=== PATIENT | male | born 1950 | race Caucasian/White ===

== ENCOUNTER 2019-10-06 05:34 | Outpatient (RCR) | payer MEDICARE, SELFPAY | END 2019-10-14 00:01 | LOC: ONCRAD 05:34 | PROVIDERS: Family Provider Internal Medicine; Visit Provider Internal Medicine Medical Oncology | DX: Z51.0 Encounter for antineoplastic radiation therapy (principal); C61 Malignant neoplasm of prostate; C79.51 Secondary malignant neoplasm of bone; K62.7 Radiation proctitis; Y84.2 Radiological procedure and radiotherapy as the cause of abnormal reaction of the patient, or of later complication, without mention of misadventure at the time of the procedure; Y82.8 Other medical devices associated with adverse incidents; N34.2 Other urethritis; K59.00 Constipation, unspecified; Z90.79 Acquired absence of other genital organ(s); M19.90 Unspecified osteoarthritis, unspecified site; Z79.818 Long term (current) use of other agents affecting estrogen receptors and estrogen levels; Z79.899 Other long term (current) drug therapy; Z87.891 Personal history of nicotine dependence | CPT/HCPCS: 36415; 77280; 77300; 77336; 77338; 77385 ×6; 80053; 84153; 85025; 99214 ==

== ENCOUNTER 2019-11-01 05:45 | Outpatient (RCR) | payer MEDICARE, SELFPAY | END 2019-11-14 00:01 | LOC: ONCRAD 05:45 | PROVIDERS: Family Provider Internal Medicine; Visit Provider Internal Medicine Medical Oncology | DX: C61 Malignant neoplasm of prostate (principal); Z79.818 Long term (current) use of other agents affecting estrogen receptors and estrogen levels | CPT/HCPCS: 96402; J9217 ==

== ENCOUNTER 2020-01-29 11:57 | Outpatient (CLI) | payer MEDICARE, SELFPAY ==
[2020-01-29 12:42] LABS: Basophils % 0.4 %; Eosinophils # 0.2 10^3/uL (0.0-0.8); Eosinophils % 3.7 %; Hematocrit 39.9 % (42.0-52.0); Hemoglobin 12.4 g/dL (11.7-16.6); Lymphocytes # 1.8 10^3/uL (0.8-4.8); Lymphocytes % 37.8 %; Mean Corpuscular HGB Conc 31.1 g/dL (30.0-36.0); Mean Corpuscular Hemoglobin 30.1 pg (28.0-34.0); Mean Corpuscular Volume 96.8 fL (80-94); Mean Platelet Volume 10.5 fL (7.4-10.4); Monocytes # 0.5 10^3/uL (0.2-0.9); Monocytes % 9.9 %; Neutrophils # 2.2 10^3/uL (1.8-7.7); Neutrophils % 47.8 %; Nucleated Red Blood Cells % 0 %; Platelet Count 246 10^3/cmm (130-400); Red Blood Count 4.12 10^6/uL (4.1-5.3); Red Cell Distribution Width 13.2 % (12.1-15.1); White Blood Count 4.6 10^3/uL (4.0-10.0)
[2020-01-29 13:14] LABS: Prostate Specific Antigen < 0.02 ng/mL (0-4)
[2020-01-29 13:25] LABS: Alanine Aminotransferase 16 U/L (0-41); Albumin Level 4.5 g/dL (3.5-5.2); Alkaline Phosphatase 64 IU/L (40-130); Aspartate Amino Transferase 18 U/L (0-40); Blood Urea Nitrogen 17 mg/dL (8-23); Calcium 10.4 mg/dL (8.5-10.5); Carbon Dioxide 25 mmol/L (22-29); Chloride 103 mmol/L (98-107); Globulin 2.7 g/dL (1.3-4.6); Glomerular Filtration Rate 74.1 mL/min (90-130); Glucose 94 mg/dL (65-115); Osmolality Calculated 286 mOsm/kg (285-295); Sodium 140 mmol/L (136-145); Total Bilirubin 0.3 mg/dL (0.15-1.2); Total Protein 7.2 g/dL (6.6-8.7)
== END 2020-01-29 11:58 | disposition home or self-care (01) ==
LOC: ONCMED 11:57
PROVIDERS: Family Provider Internal Medicine; PCP Internal Medicine; Visit Provider Internal Medicine Medical Oncology
DX: C61 Malignant neoplasm of prostate (principal)
CPT/HCPCS: 80053; 84153; 85025

== ENCOUNTER 2020-01-31 14:36 | Outpatient (CLI) | payer MEDICARE, SELFPAY ==
[2020-01-31] MEDS: leuprolide 22.5 mg Kit IM (15:00)
--- NOTE | 2020-02-03 10:46 | ONC FU_ITS ---
Dr. Harding Patient Follow-Up Note Patient: Parmjit Martínez Unit #: [id number]: [id number] Dicatated By: Dre Harding M.D.Date of Visit:Jan 31, 2020 Onc Med Follow-up/Prog Note Chief Complaint: Prostate cancer. History of Present Illness: This is a 69 year-old man with [place] score 7 adenocarcinoma of the prostate, stage III (pT3a, pN0, M0) at initial diagnosis in June 2018. He has had evidence of biochemical recurrence following radical prostatectomy in June 2018. In April 2018 he had undergone a medical evaluation at the [facility] in the [facility]. He had a normal PSA level at 2.10 ng/mL. Ultrasound of the prostate, though, showed a hypoechoic solid nodules in the peripheral zone of the right prostatic lobe measuring 1.99 x 1.84 x 1.69 cm. MRI of the prostate on 05/17/2018 showed a 2.8 x 1.8 x 2.4 cm nodule involving the right peripheral zone, highly suspicious. Needle biopsy of the prostate on 05/19/2019 showed Phoenix score 8 (4 + 4). Staging bone scan on 06/07/2018 showed osteoblastic lesions in the anterior ninth right rib and in the L4 vertebral body, suspicious for osseous metastases. A subsequent bone scan with SPECT/CT on 06/09/2018 showed a focus of moderately increased activity in the anterior end of the ninth right rib which was felt to be consistent with an old healed fracture. Areas of increased uptake in the L3 and L4 vertebral bodies corresponding to CT findings of hyperdensities in the left side of the inferior and superior cortical endplates, felt to be consistent with osseous metastases. A staging whole-body Gallium-68 PSMA PET/CT on 06/16/2018 showed intense PSMA expression with SUV 12.2 involving the right peripheral zone corresponding to the MRI lesion, consistent with the known malignancy. There was no evidence for PSMA-overexpressing [place] or skeletal metastases. Sclerotic endplate changes at L3 and L4 were felt to be most likely degenerative. On 06/30/2018 she underwent robotic-assisted radical prostatectomy. Pathology showed prostatic adenocarcinoma with ductal features, Anca score 4+3 = 7. There was involvement in both prostatic lobes and there was focal extraprostatic extension at the right anterior apex. Positive surgical margins were identified at the right anterior mid gland, right anterior apex, and left anterior apex. The positive margin had an overall Phoenix score of 4+3 equal 7 and it involved a cumulative length of more than 3 mm. There was no involvement in the right and left seminal vesicles and right and left vase deferens. There was no involvement in 13 pelvic lymph nodes. He then had urology followup with Dr. Jacobo Hardy in August 2018. His PSA at that time was < 0.01 ng/mL. As of his followup in February 2019 the PSA had increased slightly, to 0.02 ng/mL, and a repeat level on 06/22/2019 was up to 0.06 ng/mL. He then began androgen deprivation with Depo-Lupron in combination with short-term bicalutamide, with the Depo-Lupron recommended to be continued for one year of treatment. He was then seen by Dr. Chahal for radiation to the prostate bed. He completed treatment on 09/22/2019 to a total dose of 7300 cGy. His medical illnesses have otherwise been limited to degenerative arthritis and degenerative disease of the spine. His other surgeries have included a ventral hernia repair in 2017 and repair of recurrent incisional hernia with Ventrio mesh in 2019. He has also had bilateral cataract excisions. He has a history of smoking 2 packs of cigarettes daily for 15 years. He quit smoking in 2016. INTERIM HISTORY: I had seen him for a follow-up visit on 10/06/2019. At that point he was having significant side effects with the androgen deprivation therapy, including hot flashes/sweating and fatigue. His PSA level was < 0.02 ng/mL. He was willing to continue treatment with Depo-Lupron. He is seen for a follow-up visit. He continues to have side effects with the androgen deprivation including hot flashes/sweating, fatigue, and mood changes. He complains that he cannot sleep. He is trying to stay active. His ECOG score is 1. His appetite has been good. He is watching his diet, and his weight is down a couple of pounds. He has not had fever. He has no shortness of breath, cough, or chest pain. He has no GI complaints other than some diarrhea off and on. He continues to have urinary frequency and urgency, and he has nocturia 3-4 times. He has some arthritis pain, which is about the same. He has no focal neurologic symptoms. Medications: CeleBREX 1 Tablet (of 200 mg) Capsule Oral daily, Flomax 1 Capsule (of 0.4 mg) Oral daily Allergies: No Known Allergies. Review of Systems: Constitutional - His energy is down somewhat, but he is doing some light work at home. His appetite is good. He is watching his diet, and his weight is down a couple of pounds. He has hot flashes sweating at night. No fever. ECOG score is 1, ENMT - No sinus congestion/drainage. No mouth sores. No sore throat or difficulty swallowing, Hematologic/Lymphatic - No abnormal bruising or bleeding, Respiratory - No shortness of breath. No cough. No pleuritic pain or hemoptysis, Cardiovascular - No angina pain. No palpitations, Gastrointestinal - No nausea or vomiting. No heartburn or acid reflux. He has diarrhea off and on. No blood in the stool or black stools, Genitourinary (M) - No dysuria or hematuria. He has nocturia 3 to 4 times. He has frequency and urgency during the daytime. No incontinence, Musculoskeletal - He has some arthritis pain, which is unchanged, Integumentary - No skin complications, Neurologic - No headache or dizziness. No numbness/paresthesias or other focal neurologic symptoms, Psychiatric - No anxiety or depression. He does not sleep well at night. Vital Signs: Performed on Jan 31, 2020 13:53 Height - 70.00 in Weight - 208.0 lbs (LOW) BSA - 2.12 sq.m BMI - 29.85 Temperature - 97.1 F (LOW) Pulse - 68 /min Respiration - 18 /min BP - 129/68 mm(hg) O2 Sat - 100 % Pain - 0 Physical Examination: Constitutional - He looks pretty good generally, Eyes - Sclerae nonicteric. Conjunctivae clear, ENMT - No lesions noted in the oral cavity, Hematologic/Lymphatic - No cervical, clavicular, or axillary adenopathy, Respiratory - Lungs are clear with good air movement bilaterally, Cardiovascular - Heart rhythm is regular. There is no murmur, gallop, or rub noted, Abdomen - Soft. Liver and spleen are not enlarged. There is no abdominal mass or ascites noted and there is no inguinal adenopathy, Extremities - No edema, Neurologic - No focal neurologic deficits noted. Lab/Imaging: Test performed on Jan 29, 2020 12:05 Sodium 140 mmol/L Potassium 4.0 mmol/L Chloride 103 mmol/L CO2 25 mmol/L Anion Gap 16.0 BUN 17 mg/dL Creatinine 1.0 mg/dL Cr Clearance (Est) 94.2000 mL/min eGFR 74.1 mL/min Glucose 94 mg/dL Calcium 10.4 mg/dL Protein, Total 7.2 g/dL Albumin 4.5 g/dL Globulin 2.7 g/dL Bilirubin, Total 0.3 mg/dL ALT (SGPT) 16 U/L AST (SGOT) 18 U/L Alkaline Phosphatase 64 IU/L WBC 4.6 10 3/uL RBC 4.12 10 6/uL HGB 12.4 g/dL HCT 39.9 % MCV 96.8 fL MCH 30.1 pg MCHC 31.1 g/dL RDW 13.2 % Platelet Count 246 10 3/cmm MPV 10.5 fL Neutrophils 2.2 10 3/uL Lymphocytes 1.8 10 3/uL Monocytes 0.5 10 3/uL Eosinophils 0.2 10 3/uL Basophils 0.0 10 3/uL Neutrophil % 47.8 % Lymphocyte % 37.8 % Monocyte % 9.9 % Eosinophil % 3.7 % Basophils % 0.4 % PSA < 0.02 ng/mL Impression: 1. Patient with Phoenix score 7 adenocarcinoma of the prostate, stage III (pT3a, pN0, M0) at initial diagnosis in June 2018. 2. He underwent robotic-assisted laparoscopic radical prostatectomy on 06/30/2018 with extraprostatic extension and with positive surgical margin. 3. He had evidence of biochemical recurrence with PSA rising to 0.06 ng/mL as of June 2019. 4. He has pre-existing degenerative arthritis/degenerative disease of the spine. On 06/22/2019 he started androgen deprivation therapy with Depo-Lupron in combination with short-term bicalutamide. He then underwent radiation to the prostate bed. He completed treatment on 09/22/2019 to a total dose of 7300 cGy. As of his followup visit in September 2019 he was still having significant rectal pain as well as some pain with urination, which I assumed to be due to radiation proctitis and urethritis. His PSA level was adequately suppressed at < 0.02 ng/mL. He was having some symptoms associated with the androgen deprivation, but he was willing to continue treatment with Depo-Lupron. Since then he has had some improvement in the rectal pain and the voiding symptoms. He continues, though, to have significant side effects with the androgen deprivation, including hot flashes, fatigue, and mood swings. His PSA level remains adequately suppressed at < 0.02 ng/mL, Plan: He will continue androgen deprivation with Depo-Lupron 22.5 mg by intramuscular injection. He returns in 3 months. Signed By: Dre Harding M.D. <<Signature on File>>
== END 2020-01-31 14:37 | disposition home or self-care (01) ==
LOC: ONCMED 14:36
PROVIDERS: Family Provider Internal Medicine; PCP Internal Medicine; Visit Provider Internal Medicine Medical Oncology
DX: C61 Malignant neoplasm of prostate (principal); C79.51 Secondary malignant neoplasm of bone; M19.90 Unspecified osteoarthritis, unspecified site; Z79.818 Long term (current) use of other agents affecting estrogen receptors and estrogen levels; Z90.79 Acquired absence of other genital organ(s); Z92.3 Personal history of irradiation; Z87.891 Personal history of nicotine dependence
CPT/HCPCS: 96372; 96402; 99214; J9217

== ENCOUNTER 2020-04-30 10:49 | Outpatient (CLI) | payer MEDICARE, SELFPAY ==
[2020-04-30 12:18] LABS: Basophils % 0.2 %; Eosinophils # 0.1 10^3/uL (0.0-0.8); Eosinophils % 2.9 %; Hematocrit 40.1 % (42.0-52.0); Hemoglobin 12.6 g/dL (11.7-16.6); Lymphocytes # 1.7 10^3/uL (0.8-4.8); Mean Corpuscular HGB Conc 31.4 g/dL (30.0-36.0); Mean Corpuscular Hemoglobin 29.5 pg (28.0-34.0); Mean Corpuscular Volume 93.9 fL (80-94); Mean Platelet Volume 10.5 fL (7.4-10.4); Monocytes # 0.4 10^3/uL (0.2-0.9); Monocytes % 8.4 %; Neutrophils # 2.3 10^3/uL (1.8-7.7); Neutrophils % 50.8 %; Nucleated Red Blood Cells % 0 %; Platelet Count 270 10^3/cmm (130-400); Red Blood Count 4.27 10^6/uL (4.1-5.3); Red Cell Distribution Width 13.5 % (12.1-15.1); White Blood Count 4.5 10^3/uL (4.0-10.0)
[2020-04-30 13:06] LABS: Alanine Aminotransferase 12 U/L (0-41); Albumin Level 4.5 g/dL (3.5-5.2); Alkaline Phosphatase 89 IU/L (40-130); Anion Gap 15.3 (5-19); Aspartate Amino Transferase 16 U/L (0-40); Blood Urea Nitrogen 15 mg/dL (8-23); Calcium 10.1 mg/dL (8.5-10.5); Carbon Dioxide 26 mmol/L (22-29); Chloride 105 mmol/L (98-107); Glomerular Filtration Rate 83.7 mL/min (90-130); Glucose 96 mg/dL (65-115); Osmolality Calculated 290 mOsm/kg (285-295); Potassium 4.3 mmol/L (3.5-5.1); Sodium 142 mmol/L (136-145); Total Bilirubin 0.3 mg/dL (0.15-1.2); Total Protein 6.5 g/dL (6.6-8.7)
[2020-04-30 13:18] LABS: Prostate Specific Antigen 0.006 ng/mL (0-4)
== END 2020-04-30 10:50 | disposition home or self-care (01) ==
LOC: ONCMED 10:53
PROVIDERS: PCP Internal Medicine; Visit Provider Internal Medicine Medical Oncology
DX: C61 Malignant neoplasm of prostate (principal)
CPT/HCPCS: 80053; 84153; 85025

== ENCOUNTER 2020-05-01 15:14 | Outpatient (CLI) | payer MEDICARE, SELFPAY ==
[2020-05-01] MEDS: leuprolide 22.5 mg Kit IM (15:55)
--- NOTE | 2020-05-05 14:33 | ONC FU_ITS ---
Dr. Harding Patient Follow-Up Note Patient: Parmjit Martínez Unit #: [id number]: 1950 Dicatated By: Dre Harding M.D.Date of Visit:May 01, 2020 Onc Med Follow-up/Prog Note Chief Complaint: Prostate cancer. History of Present Illness: This is a 69 year-old man with [place] score 7 adenocarcinoma of the prostate, stage III (pT3a, pN0, M0) at initial diagnosis in June 2018. He has had evidence of biochemical recurrence following radical prostatectomy in June 2018. In April 2018 he had undergone a medical evaluation at the [facility] in the [facility]. He had a normal PSA level at 2.10 ng/mL. Ultrasound of the prostate, though, showed a hypoechoic solid nodules in the peripheral zone of the right prostatic lobe measuring 1.99 x 1.84 x 1.69 cm. MRI of the prostate on 05/17/2018 showed a 2.8 x 1.8 x 2.4 cm nodule involving the right peripheral zone, highly suspicious. Needle biopsy of the prostate on 05/19/2019 showed [place] score 8 (4 + 4). Staging bone scan on 06/07/2018 showed osteoblastic lesions in the anterior ninth right rib and in the L4 vertebral body, suspicious for osseous metastases. A subsequent bone scan with SPECT/CT on 06/09/2018 showed a focus of moderately increased activity in the anterior end of the ninth right rib which was felt to be consistent with an old healed fracture. Areas of increased uptake in the L3 and L4 vertebral bodies corresponding to CT findings of hyperdensities in the left side of the inferior and superior cortical endplates, felt to be consistent with osseous metastases. A staging whole-body Gallium-68 PSMA PET/CT on 06/16/2018 showed intense PSMA expression with SUV 12.2 involving the right peripheral zone corresponding to the MRI lesion, consistent with the known malignancy. There was no evidence for PSMA-overexpressing [place] or skeletal metastases. Sclerotic endplate changes at L3 and L4 were felt to be most likely degenerative. On 06/30/2018 she underwent robotic-assisted radical prostatectomy. Pathology showed prostatic adenocarcinoma with ductal features, Anca score 4+3 = 7. There was involvement in both prostatic lobes and there was focal extraprostatic extension at the right anterior apex. Positive surgical margins were identified at the right anterior mid gland, right anterior apex, and left anterior apex. The positive margin had an overall [place] score of 4+3 equal 7 and it involved a cumulative length of more than 3 mm. There was no involvement in the right and left seminal vesicles and right and left vase deferens. There was no involvement in 13 pelvic lymph nodes. He then had urology followup with Dr. Jacobo Hardy in August 2018. His PSA at that time was < 0.01 ng/mL. As of his followup in February 2019 the PSA had increased slightly, to 0.02 ng/mL, and a repeat level on 06/22/2019 was up to 0.06 ng/mL. He then began androgen deprivation with Depo-Lupron in combination with short-term bicalutamide, with the Depo-Lupron recommended to be continued for one year of treatment. He was then seen by Dr. Chahal for radiation to the prostate bed. He completed treatment on 09/22/2019 to a total dose of 7300 cGy. His medical illnesses have otherwise been limited to degenerative arthritis and degenerative disease of the spine. His other surgeries have included a ventral hernia repair in 2017 and repair of recurrent incisional hernia with Ventrio mesh in 2019. He has also had bilateral cataract excisions. He has a history of smoking 2 packs of cigarettes daily for 15 years. He quit smoking in 2016. INTERIM HISTORY: I had seen him for a follow-up visit on 10/06/2019. At that point he was having significant side effects with the androgen deprivation therapy, including hot flashes/sweating and fatigue. His PSA level was < 0.02 ng/mL. He was willing to continue treatment with Depo-Lupron. He is seen for a follow-up visit. He has been feeling pretty good, though his energy isn't that good, and he has to force himself to do things. He has some mood swings. ECOG score is 1. He has good appetite. He has not had fever. He does have hot flashes and sweating. He has no shortness of breath, cough, or chest pain. He still sometimes has loose stools. He has no other GI or complaints. He has arthritis pain, mainly in the back. It is managed adequately with Celebrex. He occasionally has headache. He has no focal neurologic symptoms. Medications: CeleBREX 1 Tablet (of 200 mg) Capsule Oral daily, Flomax 1 Capsule (of 0.4 mg) Oral daily Allergies: No Known Allergies. Review of Systems: Constitutional - His energy is down somewhat, but he is doing some light work at home. His appetite is good. He is watching his diet, and his weight is down a couple of pounds. He has hot flashes sweating at night. No fever. ECOG score is 1, ENMT - No sinus congestion/drainage. No mouth sores. No sore throat or difficulty swallowing, Hematologic/Lymphatic - No abnormal bruising or bleeding, Respiratory - No shortness of breath. No cough. No pleuritic pain or hemoptysis, Cardiovascular - No angina pain. No palpitations, Gastrointestinal - No nausea or vomiting. No heartburn or acid reflux. He has diarrhea off and on. No blood in the stool or black stools, Genitourinary (M) - No dysuria or hematuria. He has nocturia 3 to 4 times. He has frequency and urgency during the daytime. No incontinence, Musculoskeletal - He has some arthritis pain, which is unchanged, Integumentary - No skin complications, Neurologic - No headache or dizziness. No numbness/paresthesias or other focal neurologic symptoms, Psychiatric - No anxiety or depression. He does not sleep well at night. Vital Signs: Performed on May 01, 2020 15:29 Height - 70.00 in Weight - 214.2 lbs (HIGH) BSA - 2.15 sq.m BMI - 30.73 (HIGH) Temperature - 97.2 F (LOW) Pulse - 74 /min Respiration - 18 /min BP - 142/67 mm(hg) (HIGH) O2 Sat - 99 % Pain - 0 Physical Examination: Constitutional - He looks pretty good generally, Eyes - Sclerae nonicteric. Conjunctivae clear, ENMT - No lesions noted in the oral cavity, Hematologic/Lymphatic - No cervical, clavicular, or axillary adenopathy, Respiratory - Lungs are clear with good air movement bilaterally, Cardiovascular - Heart rhythm is regular. There is no murmur, gallop, or rub noted, Abdomen - Soft. Liver and spleen are not enlarged. There is no abdominal mass or ascites noted and there is no inguinal adenopathy, Extremities - No edema, Integumentary - He has generally dry skin with some areas of mild erythema, Neurologic - No focal neurologic deficits noted. Lab/Imaging: CBC shows hemoglobin 12.6 g, WBC 4500, and platelet count 270,000. Comprehensive profile Impression: 1. Patient with Anca score 7 adenocarcinoma of the prostate, stage III (pT3a, pN0, M0) at initial diagnosis in June 2018. 2. He underwent robotic-assisted laparoscopic radical prostatectomy on 06/30/2018 with extraprostatic extension and with positive surgical margin. 3. He had evidence of biochemical recurrence with PSA rising to 0.06 ng/mL as of June 2019. 4. He has pre-existing degenerative arthritis/degenerative disease of the spine. On 06/22/2019 he started androgen deprivation therapy with Depo-Lupron in combination with short-term bicalutamide. He then underwent radiation to the prostate bed. He completed treatment on 09/22/2019 to a total dose of 7300 cGy. As of his followup visit in September 2019 he was still having significant rectal pain as well as some pain with urination, which I assumed to be due to radiation proctitis and urethritis. His PSA level was adequately suppressed at < 0.02 ng/mL. He was having some symptoms associated with the androgen deprivation, but he was willing to continue treatment with Depo-Lupron. With treatment he had some improvement in the rectal pain and voiding symptoms. He has had some significant side effects with the androgen deprivation, including hot flashes, fatigue, and mood swings, but those are tolerable. His PSA level remains adequately suppressed at < 0.02 ng/mL, Plan: He will continue androgen deprivation with Depo-Lupron 22.5 mg by intramuscular injection. He returns in 3 months. Signed By: Dre Harding M.D. <<Signature on File>>
== END 2020-05-01 15:15 | disposition home or self-care (01) ==
LOC: ONCMED 15:19
PROVIDERS: PCP Internal Medicine; Visit Provider Internal Medicine Medical Oncology
DX: C61 Malignant neoplasm of prostate (principal); Z79.818 Long term (current) use of other agents affecting estrogen receptors and estrogen levels; Z90.79 Acquired absence of other genital organ(s); M47.9 Spondylosis, unspecified; M19.90 Unspecified osteoarthritis, unspecified site; Z92.3 Personal history of irradiation
CPT/HCPCS: 96372; 96402; 99214; J9217

== ENCOUNTER 2020-07-30 11:30 | Outpatient (CLI) | payer MEDICARE, OTHER, SELFPAY ==
[2020-07-30 12:07] LABS: Basophils % 0.5 %; Eosinophils # 0.2 10^3/uL (0.0-0.8); Eosinophils % 3.8 %; Hematocrit 40.6 % (42.0-52.0); Hemoglobin 12.7 g/dL (11.7-16.6); Lymphocytes # 1.9 10^3/uL (0.8-4.8); Lymphocytes % 33.1 %; Mean Corpuscular HGB Conc 31.3 g/dL (30.0-36.0); Mean Corpuscular Hemoglobin 29.8 pg (28.0-34.0); Mean Corpuscular Volume 95.3 fL (80-94); Mean Platelet Volume 10.3 fL (7.4-10.4); Monocytes # 0.5 10^3/uL (0.2-0.9); Monocytes % 8.7 %; Neutrophils # 3.08 10^3/uL (1.8-7.7); Neutrophils % 53.4 %; Nucleated Red Blood Cells % 0 %; Platelet Count 256 10^3/cmm (130-400); Red Blood Count 4.26 10^6/uL (4.1-5.3); Red Cell Distribution Width 13.5 % (12.1-15.1); White Blood Count 5.8 10^3/uL (4.0-10.0)
[2020-07-30 13:17] LABS: Prostate Specific Antigen 0.006 ng/mL (0-4)
[2020-07-30 14:21] LABS: Alanine Aminotransferase 14 U/L (0-41); Albumin Level 4.3 g/dL (3.5-5.2); Alkaline Phosphatase 75 IU/L (40-130); Anion Gap 15.4 (5-19); Aspartate Amino Transferase 16 U/L (0-40); Blood Urea Nitrogen 16 mg/dL (8-23); Calcium 9.9 mg/dL (8.5-10.5); Carbon Dioxide 26 mmol/L (22-29); Chloride 104 mmol/L (98-107); Globulin 2.7 g/dL (1.3-4.6); Glomerular Filtration Rate 83.4 mL/min (90-130); Glucose 103 mg/dL (65-115); Osmolality Calculated 289 mOsm/kg (285-295); Potassium 4.4 mmol/L (3.5-5.1); Sodium 141 mmol/L (136-145); Testosterone Total 2.5 ng/dL (193-740); Total Bilirubin 0.3 mg/dL (0.15-1.2)
== END 2020-07-30 11:31 | disposition home or self-care (01) ==
LOC: ONCMED 11:36
PROVIDERS: PCP Internal Medicine; Visit Provider Internal Medicine Medical Oncology
DX: C61 Malignant neoplasm of prostate (principal)
CPT/HCPCS: 80053; 84153; 84403; 85025

== ENCOUNTER 2020-08-01 05:58 | Outpatient (CLI) | payer MEDICARE, OTHER, SELFPAY ==
--- NOTE | 2020-08-04 10:42 | ONC FU_ITS ---
Dr. Harding Patient Follow-Up Note Patient: Parmjit Martínez Unit #: [id number]: 1950 Dicatated By: Dre Harding M.D.Date of Visit:Aug 01, 2020 Onc Med Follow-up/Prog Note Chief Complaint: Prostate cancer. History of Present Illness: This is a 70 year-old man with Walthall score 7 adenocarcinoma of the prostate, stage III (pT3a, pN0, M0) at initial diagnosis in June 2018. He has had evidence of biochemical recurrence following radical prostatectomy in June 2018. In April 2018 he had undergone a medical evaluation at the [facility] in the [facility]. He had a normal PSA level at 2.10 ng/mL. Ultrasound of the prostate, though, showed a hypoechoic solid nodules in the peripheral zone of the right prostatic lobe measuring 1.99 x 1.84 x 1.69 cm. MRI of the prostate on 05/17/2018 showed a 2.8 x 1.8 x 2.4 cm nodule involving the right peripheral zone, highly suspicious. Needle biopsy of the prostate on 05/19/2019 showed Walthall score 8 (4 + 4). Staging bone scan on 06/07/2018 showed osteoblastic lesions in the anterior ninth right rib and in the L4 vertebral body, suspicious for osseous metastases. A subsequent bone scan with SPECT/CT on 06/09/2018 showed a focus of moderately increased activity in the anterior end of the ninth right rib which was felt to be consistent with an old healed fracture. Areas of increased uptake in the L3 and L4 vertebral bodies corresponding to CT findings of hyperdensities in the left side of the inferior and superior cortical endplates, felt to be consistent with osseous metastases. A staging whole-body Gallium-68 PSMA PET/CT on 06/16/2018 showed intense PSMA expression with SUV 12.2 involving the right peripheral zone corresponding to the MRI lesion, consistent with the known malignancy. There was no evidence for PSMA-overexpressing [place] or skeletal metastases. Sclerotic endplate changes at L3 and L4 were felt to be most likely degenerative. On 06/30/2018 she underwent robotic-assisted radical prostatectomy. Pathology showed prostatic adenocarcinoma with ductal features, Anca score 4+3 = 7. There was involvement in both prostatic lobes and there was focal extraprostatic extension at the right anterior apex. Positive surgical margins were identified at the right anterior mid gland, right anterior apex, and left anterior apex. The positive margin had an overall Walthall score of 4+3 equal 7 and it involved a cumulative length of more than 3 mm. There was no involvement in the right and left seminal vesicles and right and left vase deferens. There was no involvement in 13 pelvic lymph nodes. He then had urology followup with Dr. Jacobo Hardy in August 2018. His PSA at that time was < 0.01 ng/mL. As of his followup in February 2019 the PSA had increased slightly, to 0.02 ng/mL, and a repeat level on 06/22/2019 was up to 0.06 ng/mL. He then began androgen deprivation with Depo-Lupron in combination with short-term bicalutamide, with the Depo-Lupron recommended to be continued for one year of treatment. He was then seen by Dr. Chahal for radiation to the prostate bed. He completed treatment on 09/22/2019 to a total dose of 7300 cGy. His medical illnesses have otherwise been limited to degenerative arthritis and degenerative disease of the spine. His other surgeries have included a ventral hernia repair in 2017 and repair of recurrent incisional hernia with Ventrio mesh in 2019. He has also had bilateral cataract excisions. He has a history of smoking 2 packs of cigarettes daily for 15 years. He quit smoking in 2016. INTERIM HISTORY: I had seen him for a follow-up visit on 10/06/2019. At that point he was having significant side effects with the androgen deprivation therapy, including hot flashes/sweating and fatigue. His PSA level was < 0.02 ng/mL. He was willing to continue treatment with Depo-Lupron. He is seen for a follow-up visit. He continues to have significant fatigue, and he says he has been sleeping more during the daytime. He is able to do some light work. ECOG score is 1. He has good appetite. He has not had fever. He continues to have hot flashes and night sweating. He has no shortness of breath, cough, or chest pain. He tends to have loose stools. He occasionally has some pain in the mid abdominal area. He has urinary frequency and nocturia, and he has having some urgency with urination. He has some joint pain, mainly in the shoulders. He has no focal neurologic symptoms. Medications: CeleBREX 1 Tablet (of 200 mg) Capsule Oral daily, Flomax 1 Capsule (of 0.4 mg) Oral daily Allergies: No Known Allergies. Review of Systems: Constitutional - He has fatigue and he has been sleeping more. He is able to do light work. Appetite is good and weight is stable. No fever. He does have hot flashes and night sweats. ECOG score is 1, ENMT - No sinus congestion/drainage. No mouth sores. No sore throat or difficulty swallowing, Hematologic/Lymphatic - No abnormal bruising or bleeding, Respiratory - No shortness of breath. No cough. No pleuritic pain or hemoptysis, Cardiovascular - No angina pain. No palpitations, Gastrointestinal - No nausea or vomiting. No heartburn or acid reflux. He occasionally has pain in his midabdominal area. His bowels tend to be loose. No blood in the stool or black stools, Genitourinary (M) - No dysuria or hematuria. He has urinary frequency and nocturia and he also has some urgency. No incontinence, Musculoskeletal - He has some pain in his shoulders, Integumentary - No skin rash, Neurologic - No headache or dizziness. No numbness or tingling. No other focal neurologic symptoms, Psychiatric - No anxiety or depression. He does not sleep very well at night. Vital Signs: Performed on Aug 01, 2020 14:15 Height - 70.00 in Weight - 217.4 lbs (HIGH) BSA - 2.16 sq.m BMI - 31.19 (HIGH) Temperature - 97.7 F (LOW) Pulse - 79 /min Respiration - 18 /min BP - 148/63 mm(hg) (HIGH) O2 Sat - 97 % Pain - 0 Physical Examination: Constitutional - He looks pretty good generally, Eyes - Sclerae nonicteric. Conjunctivae clear, ENMT - No lesions noted in the oral cavity, Hematologic/Lymphatic - No cervical, clavicular, or axillary adenopathy, Respiratory - Lungs are clear with good air movement bilaterally, Cardiovascular - Heart rhythm is regular. There is no murmur, gallop, or rub noted, Abdomen - Soft. Liver and spleen are not enlarged. There is no abdominal mass or ascites noted and there is no inguinal adenopathy, Extremities - No edema, Neurologic - No focal neurologic deficits noted. Lab/Imaging: CBC shows hemoglobin 12.7 g, white blood cell count 5800, and platelet count 256,000. Comprehensive metabolic profile is unremarkable. His PSA level is stable at 0.006 ng/mL with total testosterone 2.5 ng/dL. Impression: 1. Patient with Walthall score 7 adenocarcinoma of the prostate, stage III (pT3a, pN0, M0) at initial diagnosis in June 2018. 2. He underwent robotic-assisted laparoscopic radical prostatectomy on 06/30/2018 with extraprostatic extension and with positive surgical margin. 3. He had evidence of biochemical recurrence with PSA rising to 0.06 ng/mL as of June 2019. 4. He has pre-existing degenerative arthritis/degenerative disease of the spine. On 06/22/2019 he started androgen deprivation therapy with Depo-Lupron in combination with short-term bicalutamide. He then underwent radiation to the prostate bed. He completed treatment on 09/22/2019 to a total dose of 7300 cGy. As of his followup visit in September 2019 he was still having significant rectal pain as well as some pain with urination, which I assumed to be due to radiation proctitis and urethritis. His PSA level was adequately suppressed at < 0.02 ng/mL. He was having some symptoms associated with the androgen deprivation, but he was willing to continue treatment with Depo-Lupron. With treatment he had some improvement in the rectal pain and voiding symptoms. He has had side effects with the androgen deprivation, including hot flashes, fatigue, and mood swings. Thus far he feels those side effects are still tolerable. His PSA level remains adequately suppressed and stable at 0.006 ng/mL. Plan: He will continue androgen deprivation with leuprolide 22.5 mg by subcutaneous injection. He returns in 3 months. Signed By: Dre Harding M.D. <<Signature on File>>
== END 2020-08-01 05:59 | disposition home or self-care (01) ==
PROVIDERS: PCP Internal Medicine; Visit Provider Internal Medicine Medical Oncology
DX: C61 Malignant neoplasm of prostate (principal); M47.9 Spondylosis, unspecified; Z79.818 Long term (current) use of other agents affecting estrogen receptors and estrogen levels
CPT/HCPCS: 96372; 96402; 99214; J9217

== ENCOUNTER 2020-10-29 13:13 | Outpatient (CLI) | payer MEDICARE, OTHER, SELFPAY ==
[2020-10-29 14:01] LABS: Basophils % 0.5 %; Eosinophils # 0.2 10^3/uL (0.0-0.8); Eosinophils % 3.1 %; Hematocrit 42.2 % (42.0-52.0); Hemoglobin 13.1 g/dL (11.7-16.6); Lymphocytes # 2.3 10^3/uL (0.8-4.8); Mean Corpuscular Hemoglobin 29.7 pg (28.0-34.0); Mean Corpuscular Volume 95.7 fL (80-94); Mean Platelet Volume 10.3 fL (7.4-10.4); Monocytes # 0.5 10^3/uL (0.2-0.9); Monocytes % 8.5 %; Neutrophils # 3.04 10^3/uL (1.8-7.7); Neutrophils % 49.4 %; Nucleated Red Blood Cells % 0 %; Platelet Count 278 10^3/cmm (130-400); Red Blood Count 4.41 10^6/uL (4.1-5.3); Red Cell Distribution Width 13.4 % (12.1-15.1); White Blood Count 6.2 10^3/uL (4.0-10.0)
[2020-10-29 14:46] LABS: Prostate Specific Antigen 0.006 ng/mL (0-4)
[2020-10-30 00:08] LABS: Alanine Aminotransferase 16 U/L (0-41); Albumin Level 4.5 g/dL (3.5-5.2); Alkaline Phosphatase 90 IU/L (40-130); Anion Gap 13.4 (5-19); Aspartate Amino Transferase 20 U/L (0-40); Blood Urea Nitrogen 18 mg/dL (8-23); Calcium 10.3 mg/dL (8.5-10.5); Carbon Dioxide 28 mmol/L (22-29); Chloride 104 mmol/L (98-107); Globulin 2.6 g/dL (1.3-4.6); Glomerular Filtration Rate 73.9 mL/min (90-130); Glucose 90 mg/dL (65-115); Osmolality Calculated 293 mOsm/kg (285-295); Potassium 4.4 mmol/L (3.5-5.1); Sodium 141 mmol/L (136-145); Testosterone Total 2.5 ng/dL (193-740); Total Bilirubin 0.3 mg/dL (0.15-1.2); Total Protein 7.1 g/dL (6.6-8.7)
== END 2020-10-29 13:14 | disposition home or self-care (01) ==
LOC: ONCMED 13:17
PROVIDERS: PCP Internal Medicine; Visit Provider Internal Medicine Medical Oncology
DX: C61 Malignant neoplasm of prostate (principal)
CPT/HCPCS: 36415; 80053; 84153; 84403; 85025

== ENCOUNTER 2020-10-31 05:59 | Outpatient (CLI) | payer MEDICARE, OTHER, SELFPAY ==
--- NOTE | 2020-10-31 19:56 | ONC FU_ITS ---
Dr. Harding Patient Follow-Up Note Patient: Parmjit Martínez Unit #: [id number]: 1950 Dicatated By: Dre Harding M.D.Date of Visit:Oct 31, 2020 Onc Med Follow-up/Prog Note Chief Complaint: Prostate cancer. History of Present Illness: This is a 70 year-old man with Horicon score 7 adenocarcinoma of the prostate, stage III (pT3a, pN0, M0) at initial diagnosis in June 2018. He has had evidence of biochemical recurrence following radical prostatectomy in June 2018. In April 2018 he had undergone a medical evaluation at the [facility] in the [facility]. He had a normal PSA level at 2.10 ng/mL. Ultrasound of the prostate, though, showed a hypoechoic solid nodules in the peripheral zone of the right prostatic lobe measuring 1.99 x 1.84 x 1.69 cm. MRI of the prostate on 05/17/2018 showed a 2.8 x 1.8 x 2.4 cm nodule involving the right peripheral zone, highly suspicious. Needle biopsy of the prostate on 05/19/2019 showed Horicon score 8 (4 + 4). Staging bone scan on 06/07/2018 showed osteoblastic lesions in the anterior ninth right rib and in the L4 vertebral body, suspicious for osseous metastases. A subsequent bone scan with SPECT/CT on 06/09/2018 showed a focus of moderately increased activity in the anterior end of the ninth right rib which was felt to be consistent with an old healed fracture. Areas of increased uptake in the L3 and L4 vertebral bodies corresponding to CT findings of hyperdensities in the left side of the inferior and superior cortical endplates, felt to be consistent with osseous metastases. A staging whole-body Gallium-68 PSMA PET/CT on 06/16/2018 showed intense PSMA expression with SUV 12.2 involving the right peripheral zone corresponding to the MRI lesion, consistent with the known malignancy. There was no evidence for PSMA-overexpressing [place] or skeletal metastases. Sclerotic endplate changes at L3 and L4 were felt to be most likely degenerative. On 06/30/2018 she underwent robotic-assisted radical prostatectomy. Pathology showed prostatic adenocarcinoma with ductal features, Anca score 4+3 = 7. There was involvement in both prostatic lobes and there was focal extraprostatic extension at the right anterior apex. Positive surgical margins were identified at the right anterior mid gland, right anterior apex, and left anterior apex. The positive margin had an overall Horicon score of 4+3 equal 7 and it involved a cumulative length of more than 3 mm. There was no involvement in the right and left seminal vesicles and right and left vase deferens. There was no involvement in 13 pelvic lymph nodes. He then had urology followup with Dr. Jacobo Hardy in August 2018. His PSA at that time was < 0.01 ng/mL. As of his followup in February 2019 the PSA had increased slightly, to 0.02 ng/mL, and a repeat level on 06/22/2019 was up to 0.06 ng/mL. He then began androgen deprivation with Depo-Lupron in combination with short-term bicalutamide, with the Depo-Lupron recommended to be continued for one year of treatment. He was then seen by Dr. Chahal for radiation to the prostate bed. He completed treatment on 09/22/2019 to a total dose of 7300 cGy. His medical illnesses have otherwise been limited to degenerative arthritis and degenerative disease of the spine. His other surgeries have included a ventral hernia repair in 2017 and repair of recurrent incisional hernia with Ventrio mesh in 2018. He has also had bilateral cataract excisions. He has a history of smoking 2 packs of cigarettes daily for 15 years. He quit smoking in 2016. INTERIM HISTORY: I had seen him for a follow-up visit on 10/06/2019. At that point he was having significant side effects with the androgen deprivation therapy, including hot flashes/sweating and fatigue. His PSA level was < 0.02 ng/mL. He continued his Depo-Lupron injections at 3-month intervals. As of 04/30/2020 his PSA was down to 0.006 ng/mL, and as of his treatment on 08/01/2020 it remained stable at 0.006 ng/mL. He is seen for a follow-up visit. He continues to have significant weakness/fatigue. He has been forcing himself to do light work activities. His ECOG score is 1. He has good appetite. He has not had fever. He is having hot flashes and sweating every night. He has no shortness of breath, cough, or chest pain. He has had loose stools since his radiation, but that just comes and goes. He has urinary frequency with small volume voids. He has nocturia x2. He has no dysuria or hematuria and he has no urgency/incontinence. He continues to have joint pain, mainly in the shoulders and hips. He also has some back pain. It does not seem to be getting any worse. He has no focal neurologic symptoms. Medications: CeleBREX 1 Tablet (of 200 mg) Capsule Oral daily, Flomax 1 Capsule (of 0.4 mg) Oral daily Allergies: No Known Allergies. Review of Systems: Constitutional - He has some weakness/fatigue. He is forcing himself to do some work activities. Appetite is good. He has not had fever. He has hot flashes and sweating every night. ECOG score is 1, ENMT - No sinus congestion/drainage. No mouth sores. No sore throat or difficulty swallowing, Hematologic/Lymphatic - No abnormal bruising or bleeding, Respiratory - No shortness of breath. No cough. No pleuritic pain or hemoptysis, Cardiovascular - No angina pain. No palpitations, Gastrointestinal - No nausea or vomiting. No heartburn or acid reflux. His bowels are intermittently loose. No blood in the stool or black stools, Genitourinary (M) - No dysuria or hematuria. He has urinary frequency with small volume voids. He has nocturia x2. No urgency or incontinence, Musculoskeletal - He has joint pain, mainly in the shoulders and hips. He also has some back pain. It does not seem to be getting any worse, Integumentary - No skin rash, Neurologic - No headache or dizziness. No numbness or tingling. No other focal neurologic symptoms, Psychiatric - No anxiety or depression. He does have some difficulty sleeping.. Vital Signs: Performed on Oct 31, 2020 09:54 Height - 70.00 in Weight - 225.0 lbs (HIGH) BSA - 2.19 sq.m BMI - 32.28 (HIGH) Temperature - 97.45 F (LOW) Pulse - 88 /min Respiration - 16 /min BP - 149/64 mm(hg) (HIGH) O2 Sat - 97 % Pain - 0 Physical Examination: Constitutional - He looks pretty good generally, Eyes - Sclerae nonicteric. Conjunctivae clear, ENMT - No lesions noted in the oral cavity, Hematologic/Lymphatic - No cervical, clavicular, or axillary adenopathy, Respiratory - Lungs are clear with good air movement bilaterally, Cardiovascular - Heart rhythm is regular. There is no murmur, gallop, or rub noted, Abdomen - Soft. Liver and spleen are not enlarged. There is no abdominal mass or ascites noted and there is no inguinal adenopathy, Extremities - No edema, Neurologic - No focal neurologic deficits noted. Lab/Imaging: CBC shows hemoglobin 13.1 g, white blood cell count 6200, and platelet count 278,000. Comprehensive metabolic profile is unremarkable. PSA is stable at 0.006 ng/mL. Testosterone level is in castrate range at 2.5 ng/dL. Impression: 1. Patient with Horicon score 7 adenocarcinoma of the prostate, stage III (pT3a, pN0, M0) at initial diagnosis in June 2018. 2. He underwent robotic-assisted laparoscopic radical prostatectomy on 06/30/2018 with extraprostatic extension and with positive surgical margin. 3. He had evidence of biochemical recurrence with PSA rising to 0.06 ng/mL as of June 2019. 4. He has pre-existing degenerative arthritis/degenerative disease of the spine. On 06/22/2019 he started androgen deprivation therapy with Depo-Lupron in combination with short-term bicalutamide. He then underwent radiation to the prostate bed. He completed treatment on 09/22/2019 to a total dose of 7300 cGy. As of his followup visit in September 2019 he was still having significant rectal pain as well as some pain with urination, which I assumed to be due to radiation proctitis and urethritis. His PSA level was adequately suppressed at < 0.02 ng/mL. He was having some symptoms associated with the androgen deprivation, but he was willing to continue treatment with Depo-Lupron. During follow-up he has continued to Depo-Lupron injections at 3-month intervals. He has had a very good response to the androgen deprivation therapy, with his PSA level now stable at 0.006 ng/mL. However, he does have significant treatment related side effects, mainly fatigue, hot flashes, and mood swings. Plan: I had a fairly lengthy discussion with him regarding his further treatment. Ideally, with high risk disease he should completed at least 2 years of androgen deprivation therapy, though it is not entirely certain to what extent this would actually improve his overall outcome. Due to the side effects and adverse impact on his quality of life, he is wanting to stop his Depo-Lupron injections now, and I do not think that it is unreasonable. With any further recurrence of his prostate cancer, the recommended treatment would be androgen deprivation therapy with an LHRH analog in combination with androgen blockade, though it would be expected to have more side effects compared to the LHRH analog alone. In any case, he is definitely wanting to stop treatment, so he will now be followed on observation/expectant management. I will see him again in 3 months with repeat PSA level and testosterone level. His PSA will be monitored more frequently if it does start to increase. Signed By: Dre Harding M.D. <<Signature on File>>
== END 2020-10-31 06:00 | disposition home or self-care (01) ==
LOC: ONCMED 06:01
PROVIDERS: PCP Internal Medicine; Visit Provider Internal Medicine Medical Oncology
DX: C61 Malignant neoplasm of prostate (principal); R97.20 Elevated prostate specific antigen [PSA]; Z79.890 Hormone replacement therapy
CPT/HCPCS: 99214

== ENCOUNTER 2021-01-28 08:54 | Outpatient (CLI) | payer MEDICARE, OTHER, SELFPAY ==
[2021-01-28 10:02] LABS: Prostate Specific Antigen < 0.006 ng/mL (0-4)
[2021-01-28 11:05] LABS: Basophils % 0.6 %; Eosinophils # 0.1 10^3/uL (0.0-0.8); Eosinophils % 2.8 %; Hematocrit 41.3 % (42.0-52.0); Hemoglobin 13.1 g/dL (11.7-16.6); Lymphocytes # 2.1 10^3/uL (0.8-4.8); Mean Corpuscular HGB Conc 31.7 g/dL (30.0-36.0); Mean Corpuscular Hemoglobin 30.1 pg (28.0-34.0); Mean Corpuscular Volume 94.9 fL (80-94); Mean Platelet Volume 10.6 fL (7.4-10.4); Monocytes # 0.4 10^3/uL (0.2-0.9); Monocytes % 7.9 %; Neutrophils # 2.28 10^3/uL (1.8-7.7); Neutrophils % 46.3 %; Nucleated Red Blood Cells % 0 %; Platelet Count 250 10^3/cmm (130-400); Red Blood Count 4.35 10^6/uL (4.1-5.3); Red Cell Distribution Width 13.5 % (12.1-15.1); White Blood Count 4.9 10^3/uL (4.0-10.0)
[2021-01-28 11:07] LABS: Alanine Aminotransferase 11 U/L (0-41); Albumin Level 4.4 g/dL (3.5-5.2); Alkaline Phosphatase 73 IU/L (40-130); Anion Gap 14.2 (5-19); Aspartate Amino Transferase 13 U/L (0-40); Blood Urea Nitrogen 18 mg/dL (8-23); Calcium 9.8 mg/dL (8.5-10.5); Carbon Dioxide 28 mmol/L (22-29); Chloride 103 mmol/L (98-107); Globulin 2.5 g/dL (1.3-4.6); Glomerular Filtration Rate 73.9 mL/min (90-130); Glucose 90 mg/dL (65-115); Osmolality Calculated 293 mOsm/kg (285-295); Potassium 4.2 mmol/L (3.5-5.1); Sodium 141 mmol/L (136-145); Total Bilirubin 0.2 mg/dL (0.15-1.2); Total Protein 6.9 g/dL (6.6-8.7)
== END 2021-01-28 08:55 | disposition home or self-care (01) ==
PROVIDERS: PCP Internal Medicine; Visit Provider Internal Medicine Medical Oncology
DX: C61 Malignant neoplasm of prostate (principal)
CPT/HCPCS: 36415; 80053; 84153; 84403; 85025

== ENCOUNTER 2021-01-30 06:15 | Outpatient (CLI) | payer MEDICARE, OTHER, SELFPAY ==
--- NOTE | 2021-01-30 15:29 | ONC FU_ITS ---
Dr. Harding Patient Follow-Up Note Patient: Parmjit Martínez Unit #: [id number]: 1950 Dicatated By: Dre Harding M.D.Date of Visit:Jan 30, 2021 Onc Med Follow-up/Prog Note Chief Complaint: Prostate cancer. History of Present Illness: This is a 70 year-old man with [place] score 7 adenocarcinoma of the prostate, stage III (pT3a, pN0, M0) at initial diagnosis in June 2018. He has had evidence of biochemical recurrence following radical prostatectomy in June 2018. In April 2018 he had undergone a medical evaluation at the [facility] in the [facility]. He had a normal PSA level at 2.10 ng/mL. Ultrasound of the prostate, though, showed a hypoechoic solid nodules in the peripheral zone of the right prostatic lobe measuring 1.99 x 1.84 x 1.69 cm. MRI of the prostate on 05/17/2018 showed a 2.8 x 1.8 x 2.4 cm nodule involving the right peripheral zone, highly suspicious. Needle biopsy of the prostate on 05/19/2019 showed [place] score 8 (4 + 4). Staging bone scan on 06/07/2018 showed osteoblastic lesions in the anterior ninth right rib and in the L4 vertebral body, suspicious for osseous metastases. A subsequent bone scan with SPECT/CT on 06/09/2018 showed a focus of moderately increased activity in the anterior end of the ninth right rib which was felt to be consistent with an old healed fracture. Areas of increased uptake in the L3 and L4 vertebral bodies corresponding to CT findings of hyperdensities in the left side of the inferior and superior cortical endplates, felt to be consistent with osseous metastases. A staging whole-body Gallium-68 PSMA PET/CT on 06/16/2018 showed intense PSMA expression with SUV 12.2 involving the right peripheral zone corresponding to the MRI lesion, consistent with the known malignancy. There was no evidence for PSMA-overexpressing [place] or skeletal metastases. Sclerotic endplate changes at L3 and L4 were felt to be most likely degenerative. On 06/30/2018 she underwent robotic-assisted radical prostatectomy. Pathology showed prostatic adenocarcinoma with ductal features, Anca score 4+3 = 7. There was involvement in both prostatic lobes and there was focal extraprostatic extension at the right anterior apex. Positive surgical margins were identified at the right anterior mid gland, right anterior apex, and left anterior apex. The positive margin had an overall [place] score of 4+3 equal 7 and it involved a cumulative length of more than 3 mm. There was no involvement in the right and left seminal vesicles and right and left vase deferens. There was no involvement in 13 pelvic lymph nodes. He then had urology followup with Dr. Jacobo Hardy in August 2018. His PSA at that time was < 0.01 ng/mL. As of his followup in February 2019 the PSA had increased slightly, to 0.02 ng/mL, and a repeat level on 06/22/2019 was up to 0.06 ng/mL. He then began androgen deprivation with Depo-Lupron in combination with short-term bicalutamide, with the Depo-Lupron recommended to be continued for one year of treatment. He was then seen by Dr. Chahal for radiation to the prostate bed. He completed treatment on 09/22/2019 to a total dose of 7300 cGy. His medical illnesses have otherwise been limited to degenerative arthritis and degenerative disease of the spine. His other surgeries have included a ventral hernia repair in 2017 and repair of recurrent incisional hernia with Ventrio mesh in 2018. He has also had bilateral cataract excisions. He has a history of smoking 2 packs of cigarettes daily for 15 years. He quit smoking in 2016. INTERIM HISTORY: I had seen him for a follow-up visit on 10/06/2019. At that point he was having significant side effects with the androgen deprivation therapy, including hot flashes/sweating and fatigue. His PSA level was < 0.02 ng/mL. He continued his Depo-Lupron injections at 3-month intervals. As of 04/30/2020 his PSA was down to 0.006 ng/mL, and as of his treatment on 08/01/2020 it remained stable at 0.006 ng/mL. At his follow-up visit on 10/31/2020 reported increasing side effects with the androgen deprivation including fatigue, hot flashes, and mood swings. He opted not to have any further treatment. He is seen for a follow-up visit. He has been feeling pretty good generally. He is still having some fatigue, which worsened somewhat following a COVID-19 vaccination. Overall his energy has been better, though. His ECOG score is 1. Appetite has been okay. He had transient low-grade fever after the vaccination. He still has some hot flashes, but they are not as frequent or as strong. He has had some pain in the area of the angle of the jaw on the left side. He has no difficulty swallowing. He has some mild exertional dyspnea. He has no resting dyspnea, cough, or chest pain. He sometimes has diarrhea, that has been going on for a long time and it is getting better. Bladder function has been pretty good. He does get up twice at night and he sometimes has urgency with urination. He has some arthritis pain, particularly in his hips when he is walking. It is not any worse. He does not complain of headache or dizziness. He has no focal neurologic symptoms. Medications: CeleBREX 1 Tablet (of 200 mg) Capsule Oral daily, Flomax 1 Capsule (of 0.4 mg) Oral daily Allergies: No Known Allergies. Vital Signs: Performed on Jan 30, 2021 11:28 Height - 70.00 in Weight - 221.6 lbs (LOW) BSA - 2.18 sq.m BMI - 31.80 (HIGH) Temperature - 96.8 F (LOW) Pulse - 81 /min Respiration - 18 /min BP - 151/71 mm(hg) (HIGH) O2 Sat - 96 % Pain - 0 Fatigue - 2 Physical Examination: Constitutional - He looks pretty good generally, Eyes - Sclerae nonicteric. Conjunctivae clear, ENMT - No lesions noted in the oral cavity, Hematologic/Lymphatic - No cervical, clavicular, or axillary adenopathy, Respiratory - Lungs are clear with good air movement bilaterally, Cardiovascular - Heart rhythm is regular. There is no murmur, gallop, or rub noted, Abdomen - Soft. Liver and spleen are not enlarged. There is no abdominal mass or ascites noted and there is no inguinal adenopathy, Extremities - No edema, Neurologic - No focal neurologic deficits noted. Lab/Imaging: CBC shows hemoglobin 13.1 g, white blood cell count 4900, and platelet count 250,000. Comprehensive metabolic profile is unremarkable. PSA is <0.006 ng/mL. Testosterone level is 6.0 ng/dL. Problem List: 1. Anca score 7 adenocarcinoma of the prostate, stage III (pT3a, pN0, M0) at initial diagnosis in June 2018. He underwent robotic-assisted laparoscopic radical prostatectomy on 06/30/2018 with extraprostatic extension and with positive surgical margin. He had evidence of biochemical recurrence with PSA rising to 0.06 ng/mL as of June 2019. 2. Degenerative arthritis/degenerative disease of the spine. Problems Addressed with this Encounter and Plan: Patient with Anca score 7 adenocarcinoma of the prostate, stage III (pT3a, pN0, M0) at initial diagnosis in June 2018. He underwent robotic-assisted laparoscopic radical prostatectomy on 06/30/2018 with extraprostatic extension and with positive surgical margin. He had evidence of biochemical recurrence with PSA rising to 0.06 ng/mL as of June 2019. On 06/22/2019 he started androgen deprivation therapy with Depo-Lupron in combination with short-term bicalutamide. He then underwent radiation to the prostate bed. He completed treatment on 09/22/2019 to a total dose of 7300 cGy. As of his followup visit in September 2019 he was still having significant rectal pain as well as some pain with urination, which I assumed to be due to radiation proctitis and urethritis. His PSA level was adequately suppressed at < 0.02 ng/mL. He received a 2nd Depo-Lupron injection and he then continued androgen deprivation therapy with further Depo-Lupron injections in January, April, and July 2020. As of October 2020 his PSA level remained stable at 0.006 ng/mL. He reported increasing side effects associated with the androgen deprivation therapy, and at that point he opted to stop treatment. Since then he has been showing gradual improvement in his symptoms. He continues to have some hot flashes, but they have improved significantly and he also reports improved energy and activity tolerance. His PSA level remains adequately suppressed at <0.006 ng/mL. Interestingly, his testosterone level remains well within castrate range. At this point he will continue on observation/expectant management. I will see him again in 3 months. Signed By: Dre Harding M.D. <<Signature on File>>
== END 2021-01-30 06:16 | disposition home or self-care (01) ==
LOC: ONCMED 06:18
PROVIDERS: PCP Internal Medicine; Visit Provider Internal Medicine Medical Oncology
DX: Z08 Encounter for follow-up examination after completed treatment for malignant neoplasm (principal); Z85.46 Personal history of malignant neoplasm of prostate; R97.20 Elevated prostate specific antigen [PSA]; M47.9 Spondylosis, unspecified; Z79.899 Other long term (current) drug therapy
CPT/HCPCS: 99214

== ENCOUNTER 2021-05-05 07:47 | Outpatient (CLI) | payer MEDICARE, OTHER, SELFPAY ==
[2021-05-05 08:58] LABS: Testosterone Total 132.7 ng/dL (193-740)
[2021-05-05 09:02] LABS: Prostate Specific Antigen < 0.006 ng/mL (0-4)
--- NOTE | 2021-05-06 07:47 | ONC FU_ITS ---
Dr. Harding Patient Follow-Up Note Patient: Parmjit Martínez Unit #: [id number]: 1950 Dicatated By: Dre Harding M.D.Date of Visit:May 05, 2021 Onc Med Follow-up/Prog Note Chief Complaint: Prostate cancer. History of Present Illness: This is a 71 year-old man with [place] score 7 adenocarcinoma of the prostate, stage III (pT3a, pN0, M0) at initial diagnosis in June 2018. He has had evidence of biochemical recurrence following radical prostatectomy in June 2018. In April 2018 he had undergone a medical evaluation at the [facility] in the [facility]. He had a normal PSA level at 2.10 ng/mL. Ultrasound of the prostate, though, showed a hypoechoic solid nodules in the peripheral zone of the right prostatic lobe measuring 1.99 x 1.84 x 1.69 cm. MRI of the prostate on 05/17/2018 showed a 2.8 x 1.8 x 2.4 cm nodule involving the right peripheral zone, highly suspicious. Needle biopsy of the prostate on 05/19/2019 showed Caballo score 8 (4 + 4). Staging bone scan on 06/07/2018 showed osteoblastic lesions in the anterior ninth right rib and in the L4 vertebral body, suspicious for osseous metastases. A subsequent bone scan with SPECT/CT on 06/09/2018 showed a focus of moderately increased activity in the anterior end of the ninth right rib which was felt to be consistent with an old healed fracture. Areas of increased uptake in the L3 and L4 vertebral bodies corresponding to CT findings of hyperdensities in the left side of the inferior and superior cortical endplates, felt to be consistent with osseous metastases. A staging whole-body Gallium-68 PSMA PET/CT on 06/16/2018 showed intense PSMA expression with SUV 12.2 involving the right peripheral zone corresponding to the MRI lesion, consistent with the known malignancy. There was no evidence for PSMA-overexpressing [place] or skeletal metastases. Sclerotic endplate changes at L3 and L4 were felt to be most likely degenerative. On 06/30/2018 she underwent robotic-assisted radical prostatectomy. Pathology showed prostatic adenocarcinoma with ductal features, Anca score 4+3 = 7. There was involvement in both prostatic lobes and there was focal extraprostatic extension at the right anterior apex. Positive surgical margins were identified at the right anterior mid gland, right anterior apex, and left anterior apex. The positive margin had an overall Caballo score of 4+3 equal 7 and it involved a cumulative length of more than 3 mm. There was no involvement in the right and left seminal vesicles and right and left vase deferens. There was no involvement in 13 pelvic lymph nodes. He then had urology followup with Dr. Jacobo Hardy in August 2018. His PSA at that time was < 0.01 ng/mL. As of his followup in February 2019 the PSA had increased slightly, to 0.02 ng/mL, and a repeat level on 06/22/2019 was up to 0.06 ng/mL. He then began androgen deprivation with Depo-Lupron in combination with short-term bicalutamide, with the Depo-Lupron recommended to be continued for one year of treatment. He was then seen by Dr. Chahal for radiation to the prostate bed. He completed treatment on 09/22/2019 to a total dose of 7300 cGy. I had seen him for a follow-up visit on 10/06/2019. At that point he was having significant side effects with the androgen deprivation therapy, including hot flashes/sweating and fatigue. His PSA level was < 0.02 ng/mL. He continued his Depo-Lupron injections at 3-month intervals. As of 04/30/2020 his PSA was down to 0.006 ng/mL, and as of his treatment on 08/01/2020 it remained stable at 0.006 ng/mL. At his follow-up visit on 10/31/2020 reported increasing side effects with the androgen deprivation including fatigue, hot flashes, and mood swings. He opted not to have any further treatment. His medical illnesses have otherwise been limited to degenerative arthritis and degenerative disease of the spine. His other surgeries have included a ventral hernia repair in 2018 and repair of recurrent incisional hernia with Ventrio mesh in 2019. He has also had bilateral cataract excisions. He has a history of smoking 2 packs of cigarettes daily for 15 years. He quit smoking in 2016. INTERIM HISTORY: He is seen for a scheduled follow-up visit. He has been feeling pretty good generally, though he still has some fatigue and muscle weakness. His ECOG score is 1. He has good appetite. He has not had fever and he does not complain of hot flashes. He still has some cold sweats, though. He complains of the vision in his left eye is starting to get blurry. He has not had sore throat or difficulty swallowing. He has some mild exertional dyspnea. He does not have resting dyspnea, cough, or chest pain. He has no GI complaints other than his stools are still sometimes loose. Bladder function remains adequate. He has nocturia x1. He has joint pain, mainly in the shoulders, hips, and knees. He does not complain of headache or dizziness, and he has no focal neurologic symptoms. Medications: CeleBREX 1 Tablet (of 200 mg) Capsule Oral daily, Flomax 1 Capsule (of 0.4 mg) Oral daily Allergies: No Known Allergies. Vital Signs: Performed on May 05, 2021 09:56 Height - 70.00 in Weight - 224.6 lbs (HIGH) BSA - 2.19 sq.m BMI - 32.23 (HIGH) Temperature - 96.9 F (LOW) Pulse - 69 /min Respiration - 18 /min BP - 154/75 mm(hg) (HIGH) O2 Sat - 95 % (LOW) Pain - 0 Fatigue - 0 Physical Examination: Constitutional - He looks pretty good generally, Eyes - Sclerae nonicteric. Conjunctivae clear, ENMT - No lesions noted in the oral cavity, Hematologic/Lymphatic - No cervical, clavicular, or axillary adenopathy, Respiratory - Lungs are clear with good air movement bilaterally, Cardiovascular - Heart rhythm is regular. There is no murmur, gallop, or rub noted, Abdomen - Soft. Liver and spleen are not enlarged. There is no abdominal mass or ascites noted and there is no inguinal adenopathy, Extremities - No edema, Neurologic - No focal neurologic deficits noted. Lab/Imaging: Test performed on May 05, 2021 07:59 Testosterone, Total 132.7 ng/dL PSA < 0.006 ng/mL Problem List: 1. Anca score 7 adenocarcinoma of the prostate, stage III (pT3a, pN0, M0) at initial diagnosis in June 2018. He underwent robotic-assisted laparoscopic radical prostatectomy on 06/30/2018 with extraprostatic extension and with positive surgical margin. He had evidence of biochemical recurrence with PSA rising to 0.06 ng/mL as of June 2019. 2. Degenerative arthritis/degenerative disease of the spine. Problems Addressed with this Encounter and Plan: Patient with Cab[place] score 7 adenocarcinoma of the prostate, stage III (pT3a, pN0, M0) at initial diagnosis in June 2018. He underwent robotic-assisted laparoscopic radical prostatectomy on 06/30/2018 with extraprostatic extension and with positive surgical margin. He had evidence of biochemical recurrence with PSA rising to 0.06 ng/mL as of June 2019. On 06/22/2019 he started androgen deprivation therapy with Depo-Lupron in combination with short-term bicalutamide. He then underwent radiation to the prostate bed. He completed treatment on 09/22/2019 to a total dose of 7300 cGy. As of his followup visit in September 2019 he was still having significant rectal pain as well as some pain with urination, which I assumed to be due to radiation proctitis and urethritis. His PSA level was adequately suppressed at < 0.02 ng/mL. He received a 2nd Depo-Lupron injection and he then continued androgen deprivation therapy with further Depo-Lupron injections in January, April, and July 2020. As of October 2020 his PSA level remained stable at 0.006 ng/mL. He reported increasing side effects associated with the androgen deprivation therapy, and at that point he opted to stop treatment. During followup he has had some gradual improvement in his symptoms, though he continues to have some fatigue and muscle weakness. He has been showing recovery of his testosterone level, which is now just a little below normal range. His PSA level remains adequately suppressed at < 0.006 ng/mL. He continues on expectant management. I will see him again in 3 months. Signed By: Dre Harding M.D. <<Signature on File>>
== END 2021-05-05 07:48 | disposition home or self-care (01) ==
LOC: ONCMED 07:50
PROVIDERS: PCP Internal Medicine; Visit Provider Internal Medicine Medical Oncology
DX: C61 Malignant neoplasm of prostate (principal); C79.51 Secondary malignant neoplasm of bone; R97.20 Elevated prostate specific antigen [PSA]; Z79.818 Long term (current) use of other agents affecting estrogen receptors and estrogen levels; Z79.899 Other long term (current) drug therapy
CPT/HCPCS: 36415; 84153; 84403; G0463

== ENCOUNTER 2021-08-19 11:15 | Outpatient (CLI) | payer MEDICARE, OTHER, SELFPAY ==
[2021-08-19 12:26] LABS: Basophils % 0.6 %; Eosinophils # 0.1 10^3/uL (0.0-0.8); Eosinophils % 1.9 %; Hematocrit 42.8 % (42.0-52.0); Hemoglobin 13.3 g/dL (11.7-16.6); Lymphocytes # 2.8 10^3/uL (0.8-4.8); Lymphocytes % 42.4 %; Mean Corpuscular HGB Conc 31.1 g/dL (30.0-36.0); Mean Corpuscular Hemoglobin 29.3 pg (28.0-34.0); Mean Corpuscular Volume 94.3 fl (80-94); Mean Platelet Volume 10.3 fL (7.4-10.4); Monocytes # 0.5 10^3/uL (0.2-0.9); Monocytes % 7.6 %; Neutrophils # 3.14 10^3/uL (1.8-7.7); Neutrophils % 47.2 %; Nucleated Red Blood Cells % 0 %; Platelet Count 245 10^3/cmm (130-400); Red Blood Count 4.54 10^6/uL (4.1-5.3); Red Cell Distribution Width 13.7 % (12.1-15.1); White Blood Count 6.7 10^3/uL (4.0-10.0)
[2021-08-19 13:00] LABS: Alanine Aminotransferase 9 U/L (0-41); Albumin Level 4.2 g/dL (3.5-5.2); Alkaline Phosphatase 69 IU/L (40-130); Anion Gap 12.1 (5-19); Aspartate Amino Transferase 12 U/L (0-40); Blood Urea Nitrogen 16 mg/dL (8-23); Calcium 9.5 mg/dL (8.5-10.5); Carbon Dioxide 27 mmol/L (22-29); Chloride 106 mmol/L (98-107); Globulin 2.5 g/dL (1.3-4.6); Glucose 100 mg/dL (65-115); Osmolality Calculated 293 mOsm/kg (285-295); Potassium 4.1 mmol/L (3.5-5.1); Sodium 141 mmol/L (136-145); Total Bilirubin 0.3 mg/dL (0.15-1.2); Total Protein 6.7 g/dL (6.6-8.7)
[2021-08-19 13:06] LABS: Testosterone Total 263.4 ng/dL (193-740)
[2021-08-19 13:34] LABS: Thyroid Stimulating Hormone 1.98 uIU/mL (0.27-4.20)
[2021-08-19 14:28] LABS: Prostate Specific Antigen < 0.006 ng/mL (0-4)
--- NOTE | 2021-08-19 20:16 | ONC FU_ITS ---
Dr. Harding Patient Follow-Up Note Patient: Parmjit Martínez Unit #: [id number]: 1950 Dicatated By: Dre Harding M.D.Date of Visit:Aug 19, 2021 Onc Med Follow-up/Prog Note Chief Complaint: Prostate cancer. History of Present Illness: This is a 71 year-old man with [place] score 7 adenocarcinoma of the prostate, stage III (pT3a, pN0, M0) at initial diagnosis in June 2018. He has had evidence of biochemical recurrence following radical prostatectomy in June 2018. In April 2018 he had undergone a medical evaluation at the [facility] in the [facility]. He had a normal PSA level at 2.10 ng/mL. Ultrasound of the prostate, though, showed a hypoechoic solid nodules in the peripheral zone of the right prostatic lobe measuring 1.99 x 1.84 x 1.69 cm. MRI of the prostate on 05/17/2018 showed a 2.8 x 1.8 x 2.4 cm nodule involving the right peripheral zone, highly suspicious. Needle biopsy of the prostate on 05/19/2019 showed [place] score 8 (4 + 4). Staging bone scan on 06/07/2018 showed osteoblastic lesions in the anterior ninth right rib and in the L4 vertebral body, suspicious for osseous metastases. A subsequent bone scan with SPECT/CT on 06/09/2018 showed a focus of moderately increased activity in the anterior end of the ninth right rib which was felt to be consistent with an old healed fracture. Areas of increased uptake in the L3 and L4 vertebral bodies corresponding to CT findings of hyperdensities in the left side of the inferior and superior cortical endplates, felt to be consistent with osseous metastases. A staging whole-body Gallium-68 PSMA PET/CT on 06/16/2018 showed intense PSMA expression with SUV 12.2 involving the right peripheral zone corresponding to the MRI lesion, consistent with the known malignancy. There was no evidence for PSMA-overexpressing [place] or skeletal metastases. Sclerotic endplate changes at L3 and L4 were felt to be most likely degenerative. On 06/30/2018 she underwent robotic-assisted radical prostatectomy. Pathology showed prostatic adenocarcinoma with ductal features, Anca score 4+3 = 7. There was involvement in both prostatic lobes and there was focal extraprostatic extension at the right anterior apex. Positive surgical margins were identified at the right anterior mid gland, right anterior apex, and left anterior apex. The positive margin had an overall [place] score of 4+3 equal 7 and it involved a cumulative length of more than 3 mm. There was no involvement in the right and left seminal vesicles and right and left vase deferens. There was no involvement in 13 pelvic lymph nodes. He then had urology followup with Dr. Jacobo Hardy in August 2018. His PSA at that time was < 0.01 ng/mL. As of his followup in February 2019 the PSA had increased slightly, to 0.02 ng/mL, and a repeat level on 06/22/2019 was up to 0.06 ng/mL. He then began androgen deprivation with Depo-Lupron in combination with short-term bicalutamide, with the Depo-Lupron recommended to be continued for one year of treatment. He was then seen by Dr. Chahal for radiation to the prostate bed. He completed treatment on 09/22/2019 to a total dose of 7300 cGy. I had seen him for a follow-up visit on 10/06/2019. At that point he was having significant side effects with the androgen deprivation therapy, including hot flashes/sweating and fatigue. His PSA level was < 0.02 ng/mL. He continued his Depo-Lupron injections at 3-month intervals. As of 04/30/2020 his PSA was down to 0.006 ng/mL, and as of his treatment on 08/01/2020 it remained stable at 0.006 ng/mL. At his follow-up visit on 10/31/2020 reported increasing side effects with the androgen deprivation including fatigue, hot flashes, and mood swings. He opted not to have any further treatment. His medical illnesses have otherwise been limited to degenerative arthritis and degenerative disease of the spine. His other surgeries have included a ventral hernia repair in 2018 and repair of recurrent incisional hernia with Ventrio mesh in 2019. He has also had bilateral cataract excisions. He has a history of smoking 2 packs of cigarettes daily for 15 years. He quit smoking in 2016. INTERIM HISTORY: He is seen for a scheduled follow-up visit. He still feels kind of tired, and he takes naps. His energy, though, is getting more back to normal. His ECOG is 1. His appetite is good. He has no fever or night sweats. His hot flashes have resolved. He has some shortness of breath with activity. He does not complain of cough, and he has not been having chest pain. He has some acid reflux. He has no other GI or complaints. He has some joint pain, which he manages with turmeric and chondroitin sulfate. He does not complain of headache. He sometimes has orthostatic dysequilibrium. He has no focal neurologic symptoms. Medications: CeleBREX 1 Tablet (of 200 mg) Capsule Oral daily, Flomax 1 Capsule (of 0.4 mg) Oral daily Allergies: No Known Allergies. Vital Signs: Performed on Aug 19, 2021 13:51 Height - 70.00 in Weight - 225 lbs (HIGH) BSA - 2.19 sq.m BMI - 32.28 (HIGH) Temperature - 97.6 F (LOW) Pulse - 73 /min Respiration - 18 /min BP - 145/69 mm(hg) (HIGH) O2 Sat - 96 % Pain - 0 Fatigue - 5 Physical Examination: Constitutional - He looks pretty good generally, Eyes - Sclerae nonicteric. Conjunctivae clear, ENMT - No lesions noted in the oral cavity, Hematologic/Lymphatic - No cervical, clavicular, or axillary adenopathy, Respiratory - Lungs are clear with good air movement bilaterally, Cardiovascular - Heart rhythm is regular. There is no murmur, gallop, or rub noted, Abdomen - Mildly distended. Liver and spleen are not enlarged. There is no abdominal mass or ascites noted and there is no inguinal adenopathy, Extremities - No edema, Neurologic - No focal neurologic deficits noted. Lab/Imaging: Test performed on Aug 19, 2021 12:10 Sodium 141 mmol/L Testosterone, Total 263.4 ng/dL TSH 1.98 uIU/mL Potassium 4.1 mmol/L Chloride 106 mmol/L CO2 27 mmol/L Anion Gap 12.1 BUN 16 mg/dL Creatinine 0.7 mg/dL Cr Clearance (Est) 139.73 mL/min Glucose 100 mg/dL Osmolality - Calculated 293 mOsm/kg Calcium 9.5 mg/dL Protein, Total 6.7 g/dL Albumin 4.2 g/dL Globulin 2.5 g/dL Bilirubin, Total 0.3 mg/dL ALT (SGPT) 9 U/L AST (SGOT) 12 U/L Alkaline Phosphatase 69 IU/L WBC 6.7 10 3/uL RBC 4.54 10 6/uL HGB 13.3 g/dL HCT 42.8 % MCV 94.3 fl MCH 29.3 pg MCHC 31.1 g/dL RDW 13.7 % Platelet Count 245 10 3/cmm MPV 10.3 fL Neutrophils 3.14 10 3/uL Lymphocytes 2.8 10 3/uL Monocytes 0.5 10 3/uL Eosinophils 0.1 10 3/uL Basophils 0.0 10 3/uL Neutrophil % 47.2 % Lymphocyte % 42.4 % Monocyte % 7.6 % Eosinophil % 1.9 % Basophils % 0.6 % NRBC % 0 % PSA < 0.006 ng/mL Problem List: 1. [place] score 7 adenocarcinoma of the prostate, stage III (pT3a, pN0, M0) at initial diagnosis in June 2018. He underwent robotic-assisted laparoscopic radical prostatectomy on 06/30/2018 with extraprostatic extension and with positive surgical margin. He had evidence of biochemical recurrence with PSA rising to 0.06 ng/mL as of June 2019. 2. Degenerative arthritis/degenerative disease of the spine. Problems Addressed with this Encounter and Plan: Patient with [place] score 7 adenocarcinoma of the prostate, stage III (pT3a, pN0, M0) at initial diagnosis in June 2018. He underwent robotic-assisted laparoscopic radical prostatectomy on 06/30/2018 with extraprostatic extension and with positive surgical margin. He had evidence of biochemical recurrence with PSA rising to 0.06 ng/mL as of June 2019. On 06/22/2019 he started androgen deprivation therapy with Depo-Lupron in combination with short-term bicalutamide. He then underwent radiation to the prostate bed. He completed treatment on 09/22/2019 to a total dose of 7300 cGy. As of his followup visit in September 2019 he was still having significant rectal pain as well as some pain with urination, which I assumed to be due to radiation proctitis and urethritis. His PSA level was adequately suppressed at < 0.02 ng/mL. He received a 2nd Depo-Lupron injection and he then continued androgen deprivation therapy with further Depo-Lupron injections in January, April, and July 2020. As of October 2020 his PSA level remained stable at 0.006 ng/mL. He reported increasing side effects associated with the androgen deprivation therapy, and at that point he opted to stop treatment. During followup he has had gradual improvement in his symptoms, though he continues to have some fatigue and muscle weakness. Overall, he appears to be doing pretty well clinically. His PSA level remains adequately suppressed at < 0.006 ng/mL. He continues on expectant management. He will have a repeat PSA level in 3 months and I will see him again in 6 months. Signed By: Dre Harding M.D. <<Signature on File>>
== END 2021-08-19 11:16 | disposition home or self-care (01) ==
LOC: ONCMED 11:18
PROVIDERS: PCP Internal Medicine; Visit Provider Internal Medicine Medical Oncology
DX: Z08 Encounter for follow-up examination after completed treatment for malignant neoplasm (principal); Z85.46 Personal history of malignant neoplasm of prostate; Z90.79 Acquired absence of other genital organ(s); M47.9 Spondylosis, unspecified; Z92.21 Personal history of antineoplastic chemotherapy; Z92.3 Personal history of irradiation; Z79.899 Other long term (current) drug therapy
CPT/HCPCS: 36415; 80053; 84153; 84403; 84443; 85025; 99214

== ENCOUNTER 2021-10-17 09:26 | Outpatient (CLI) | payer MEDICARE, OTHER, SELFPAY ==
[2021-10-17 15:12] LABS: Prostate Specific Antigen < 0.014 ng/mL (0-4)
== END 2021-10-17 09:27 | disposition home or self-care (01) ==
LOC: ONCMED 09:28
PROVIDERS: PCP Internal Medicine; Visit Provider Internal Medicine Medical Oncology
DX: C61 Malignant neoplasm of prostate (principal)
CPT/HCPCS: 36415; 84153

== ENCOUNTER 2021-11-25 08:53 | Outpatient (CLI) | payer MEDICARE, OTHER, SELFPAY ==
[2021-11-25 08:57] VITALS: BP 142/64; PULSE 79; RESP 18; TEMP 36.8; O2SAT 95; BMI 31.5
[2021-11-25 10:00] VITALS: BP 132/68; PULSE 65; RESP 17; TEMP 36.8; O2SAT 97
[2021-11-25 11:07] VITALS: BP 137/72; PULSE 63; RESP 16; TEMP 36.7; O2SAT 97
== END 2021-11-25 08:54 | disposition home or self-care (01) ==
LOC: OPS 08:55
PROVIDERS: PCP Internal Medicine; Visit Provider Nurse Practitioner Family
DX: U07.1 COVID-19 (principal)
CPT/HCPCS: 96365

== ENCOUNTER 2022-01-12 11:23 | Outpatient (CLI) | payer MEDICARE, OTHER, SELFPAY ==
[2022-01-12 12:11] LABS: Basophils % 0.5 %; Eosinophils # 0.1 10^3/uL (0.0-0.8); Eosinophils % 2.1 %; Hematocrit 42.7 % (42.0-52.0); Hemoglobin 13.6 g/dL (11.7-16.6); Lymphocytes # 2.6 10^3/uL (0.8-4.8); Lymphocytes % 41.2 %; Mean Corpuscular HGB Conc 31.9 g/dL (30.0-36.0); Mean Corpuscular Hemoglobin 29.9 pg (28.0-34.0); Mean Corpuscular Volume 93.8 fl (80-94); Mean Platelet Volume 9.9 fL (7.4-10.4); Monocytes # 0.5 10^3/uL (0.2-0.9); Monocytes % 7.7 %; Neutrophils % 47.9 %; Nucleated Red Blood Cells % 0 %; Platelet Count 240 10^3/cmm (130-400); Red Blood Count 4.55 10^6/uL (4.1-5.3); Red Cell Distribution Width 13.7 % (12.1-15.1); White Blood Count 6.3 10^3/uL (4.0-10.0)
[2022-01-12 12:45] LABS: Alanine Aminotransferase 11 U/L (0-41); Albumin Level 4.8 g/dL (3.5-5.2); Alkaline Phosphatase 64 IU/L (40-130); Anion Gap 13.1 (5-19); Aspartate Amino Transferase 18 U/L (0-40); Blood Urea Nitrogen 16 mg/dL (8-23); Calcium 9.9 mg/dL (8.5-10.5); Carbon Dioxide 28 mmol/L (22-29); Chloride 102 mmol/L (98-107); Globulin 1.8 g/dL (1.3-4.6); Glucose 106 mg/dL (65-115); Osmolality Calculated 290 mOsm/kg (285-295); Potassium 4.1 mmol/L (3.5-5.1); Sodium 139 mmol/L (136-145); Total Bilirubin 0.5 mg/dL (0.15-1.2); Total Protein 6.6 g/dL (6.6-8.7)
[2022-01-12 12:48] LABS: Prostate Specific Antigen < 0.014 ng/mL (0-4)
--- NOTE | 2022-01-16 13:19 | ONC FU_ITS ---
Dr. Harding Patient Follow-Up Note Patient: Parmjit Martínez Unit #: [id number]: 1950 Dicatated By: Dre Harding M.D.Date of Visit:Jan 12, 2022 Onc Med Follow-up/Prog Note Chief Complaint: Prostate cancer. History of Present Illness: This is a 71 year-old man with [place] score 7 adenocarcinoma of the prostate, stage III (pT3a, pN0, M0) at initial diagnosis in June 2018. He has had evidence of biochemical recurrence following radical prostatectomy in June 2018. In April 2018 he had undergone a medical evaluation at the [facility] in the [facility]. He had a normal PSA level at 2.10 ng/mL. Ultrasound of the prostate, though, showed a hypoechoic solid nodules in the peripheral zone of the right prostatic lobe measuring 1.99 x 1.84 x 1.69 cm. MRI of the prostate on 05/17/2018 showed a 2.8 x 1.8 x 2.4 cm nodule involving the right peripheral zone, highly suspicious. Needle biopsy of the prostate on 05/19/2019 showed [place] score 8 (4 + 4). Staging bone scan on 06/07/2018 showed osteoblastic lesions in the anterior ninth right rib and in the L4 vertebral body, suspicious for osseous metastases. A subsequent bone scan with SPECT/CT on 06/09/2018 showed a focus of moderately increased activity in the anterior end of the ninth right rib which was felt to be consistent with an old healed fracture. Areas of increased uptake in the L3 and L4 vertebral bodies corresponding to CT findings of hyperdensities in the left side of the inferior and superior cortical endplates, felt to be consistent with osseous metastases. A staging whole-body Gallium-68 PSMA PET/CT on 06/16/2018 showed intense PSMA expression with SUV 12.2 involving the right peripheral zone corresponding to the MRI lesion, consistent with the known malignancy. There was no evidence for PSMA-overexpressing [place] or skeletal metastases. Sclerotic endplate changes at L3 and L4 were felt to be most likely degenerative. On 06/30/2018 she underwent robotic-assisted radical prostatectomy. Pathology showed prostatic adenocarcinoma with ductal features, Anca score 4+3 = 7. There was involvement in both prostatic lobes and there was focal extraprostatic extension at the right anterior apex. Positive surgical margins were identified at the right anterior mid gland, right anterior apex, and left anterior apex. The positive margin had an overall [place] score of 4+3 equal 7 and it involved a cumulative length of more than 3 mm. There was no involvement in the right and left seminal vesicles and right and left vase deferens. There was no involvement in 13 pelvic lymph nodes. He then had urology followup with Dr. Jacobo Hardy in August 2018. His PSA at that time was < 0.01 ng/mL. As of his followup in February 2019 the PSA had increased slightly, to 0.02 ng/mL, and a repeat level on 06/22/2019 was up to 0.06 ng/mL. He then began androgen deprivation with Depo-Lupron in combination with short-term bicalutamide, with the Depo-Lupron recommended to be continued for one year of treatment. He was then seen by Dr. Chahal for radiation to the prostate bed. He completed treatment on 09/22/2019 to a total dose of 7300 cGy. I had seen him for a follow-up visit on 10/06/2019. At that point he was having significant side effects with the androgen deprivation therapy, including hot flashes/sweating and fatigue. His PSA level was < 0.02 ng/mL. He continued his Depo-Lupron injections at 3-month intervals. As of 04/30/2020 his PSA was down to 0.006 ng/mL, and as of his treatment on 08/01/2020 it remained stable at 0.006 ng/mL. At his follow-up visit on 10/31/2020 reported increasing side effects with the androgen deprivation including fatigue, hot flashes, and mood swings. He opted not to have any further treatment. His medical illnesses have otherwise been limited to degenerative arthritis and degenerative disease of the spine. His other surgeries have included a ventral hernia repair in 2018 and repair of recurrent incisional hernia with Ventrio mesh in 2019. He has also had bilateral cataract excisions. He has a history of smoking 2 packs of cigarettes daily for 15 years. He quit smoking in 2016. INTERIM HISTORY: As of his follow-up visit on 08/19/2021 he was still having some fatigue, but his PSA level remained adequately suppressed at < 0.006 ng/mL. His testosterone was back up into low normal range of 263.4 ng/dL. He continued expectant management. He is seen for a follow-up visit. He has been feeling pretty good generally. He says that he was diagnosed with COVID-19 virus infection a couple of months ago. He had just fairly mild cold symptoms for couple of days. He recovered uneventfully. He still complains that he is tired by afternoon. His ECOG score is 1. He has good appetite. He has gained weight. He has no fever, night sweats, or hot flashes. He has not had sore mouth or throat, and he currently does not complain of cough. He has some mild exertional dyspnea. He has not been having chest pain. He has no GI complaints other than his stools are still sometimes loose. Bladder function has been pretty good. It's not as frequent now as it had been. He has some arthritis, mainly in the pelvic area, but that is about the same or perhaps a little better. He does not complain of headache or dizziness, and he has no focal neurologic symptoms. Medications: CeleBREX 1 Tablet (of 200 mg) Capsule Oral daily, Cholecalciferol Tablet Oral daily, Magnesium Tablet Oral daily, Turmeric Tablet Oral daily, Vitamin C Tablet Oral daily, Zinc Tablet Oral daily Allergies: No Known Allergies. Vital Signs: Performed on Jan 12, 2022 13:03 Height - 70.00 in Weight - 226.4 lbs (HIGH) BSA - 2.20 sq.m BMI - 32.49 (HIGH) Temperature - 98.2 F (LOW) Pulse - 85 /min Respiration - 18 /min BP - 157/80 mm(hg) (HIGH) O2 Sat - 96 % Pain - 0 Fatigue - 3 Physical Examination: Constitutional - He looks good generally, Eyes - Sclerae nonicteric. Conjunctivae clear, ENMT - No lesions noted in the oral cavity, Hematologic/Lymphatic - No cervical, clavicular, or axillary adenopathy, Respiratory - Lungs are clear with good air movement bilaterally, Cardiovascular - Heart rhythm is regular. There is no murmur, gallop, or rub noted, Abdomen - Mildly distended. Liver and spleen are not enlarged. There is no abdominal mass or ascites noted and there is no inguinal adenopathy, Extremities - No edema, Neurologic - No focal neurologic deficits noted. Lab/Imaging: Test performed on Jan 12, 2022 11:58 Sodium 139 mmol/L Potassium 4.1 mmol/L Chloride 102 mmol/L CO2 28 mmol/L Anion Gap 13.1 BUN 16 mg/dL Creatinine 1.0 mg/dL Cr Clearance (Est) 97.8100 mL/min Glucose 106 mg/dL Osmolality - Calculated 290 mOsm/kg Calcium 9.9 mg/dL Protein, Total 6.6 g/dL Albumin 4.8 g/dL Globulin 1.8 g/dL Bilirubin, Total 0.5 mg/dL ALT (SGPT) 11 U/L AST (SGOT) 18 U/L Alkaline Phosphatase 64 IU/L WBC 6.3 10 3/uL RBC 4.55 10 6/uL HGB 13.6 g/dL HCT 42.7 % MCV 93.8 fl MCH 29.9 pg MCHC 31.9 g/dL RDW 13.7 % Platelet Count 240 10 3/cmm MPV 9.9 fL Neutrophils 3.00 10 3/uL Lymphocytes 2.6 10 3/uL Monocytes 0.5 10 3/uL Eosinophils 0.1 10 3/uL Basophils 0.0 10 3/uL Neutrophil % 47.9 % Lymphocyte % 41.2 % Monocyte % 7.7 % Eosinophil % 2.1 % Basophils % 0.5 % NRBC % 0 % PSA < 0.014 ng/mL Problem List: 1. [place] score 7 adenocarcinoma of the prostate, stage III (pT3a, pN0, M0) at initial diagnosis in June 2018. He underwent robotic-assisted laparoscopic radical prostatectomy on 06/30/2018 with extraprostatic extension and with positive surgical margin. He had evidence of biochemical recurrence with PSA rising to 0.06 ng/mL as of June 2019. 2. Degenerative arthritis/degenerative disease of the spine. Problems Addressed with this Encounter and Plan: Patient with [place] score 7 adenocarcinoma of the prostate, stage III (pT3a, pN0, M0) at initial diagnosis in June 2018. He underwent robotic-assisted laparoscopic radical prostatectomy on 06/30/2018 with extraprostatic extension and with positive surgical margin. He had evidence of biochemical recurrence with PSA rising to 0.06 ng/mL as of June 2019. On 06/22/2019 he started androgen deprivation therapy with Depo-Lupron in combination with short-term bicalutamide. He then underwent radiation to the prostate bed. He completed treatment on 09/22/2019 to a total dose of 7300 cGy. As of his followup visit in September 2019 he was still having significant rectal pain as well as some pain with urination, which I assumed to be due to radiation proctitis and urethritis. His PSA level was adequately suppressed at < 0.02 ng/mL. He received a 2nd Depo-Lupron injection and he then continued androgen deprivation therapy with further Depo-Lupron injections in January, April, and July 2020. As of October 2020 his PSA level remained stable at 0.006 ng/mL. He reported increasing side effects associated with the androgen deprivation therapy, and at that point he opted to stop treatment. During followup he had gradual improvement in his symptoms. He continues to have some fatigue, but overall he has been doing pretty well clinically. Thus far there has been no evidence of recurrence of the prostate cancer. His PSA level remains adequately suppressed at < 0.014 ng/mL. He continues on expectant management. He will have a repeat PSA level in 3 months and a followup visit in 6 months. Signed By: Dre Harding M.D. <<Signature on File>>
== END 2022-01-12 11:24 | disposition home or self-care (01) ==
PROVIDERS: PCP Internal Medicine; Visit Provider Internal Medicine Medical Oncology
DX: Z85.46 Personal history of malignant neoplasm of prostate (principal); M47.9 Spondylosis, unspecified; Z79.899 Other long term (current) drug therapy; Z87.891 Personal history of nicotine dependence
CPT/HCPCS: 36415; 80053; 84153; 85025; 99214

== ENCOUNTER 2022-04-10 08:50 | Oncology outpatient (recurring) (ONCR) | payer MEDICARE, OTHER, SELFPAY ==
[2022-04-10 09:15] LABS: Basophils % 0.5 %; Eosinophils # 0.2 10^3/uL (0.0-0.8); Eosinophils % 2.7 %; Hematocrit 45.8 % (42.0-52.0); Hemoglobin 14.4 g/dL (11.7-16.6); Lymphocytes # 3.2 10^3/uL (0.8-4.8); Mean Corpuscular HGB Conc 31.4 g/dL (30.0-36.0); Mean Corpuscular Hemoglobin 29.9 pg (28.0-34.0); Mean Corpuscular Volume 95.2 fl (80-94); Mean Platelet Volume 9.8 fL (7.4-10.4); Monocytes # 0.6 10^3/uL (0.2-0.9); Monocytes % 7.8 %; Neutrophils # 3.95 10^3/uL (1.8-7.7); Neutrophils % 48.3 %; Nucleated Red Blood Cells % 0 %; Platelet Count 315 10^3/cmm (130-400); Red Blood Count 4.81 10^6/uL (4.1-5.3); White Blood Count 8.2 10^3/uL (4.0-10.0)
[2022-04-10 09:32] LABS: Blood Urea Nitrogen 19 mg/dL (8-23); Calcium 9.7 mg/dL (8.5-10.5); Carbon Dioxide 25 mmol/L (22-29); Glucose 106 mg/dL (65-115); Total Bilirubin 0.3 mg/dL (0.15-1.2); Total Protein 7.1 g/dL (6.6-8.7)
[2022-04-10 09:47] LABS: Albumin Level 4.5 g/dL (3.5-5.2); Alkaline Phosphatase 58 IU/L (40-130); Anion Gap 14.9 (5-19); Chloride 103 mmol/L (98-107); Globulin 2.4 g/dL (1.3-4.6); Osmolality Calculated 288 mOsm/kg (285-295); Potassium 3.9 mmol/L (3.5-5.1); Sodium 138 mmol/L (136-145)
[2022-04-10 09:58] LABS: Alanine Aminotransferase 13 U/L (0-41); Aspartate Amino Transferase 17 U/L (0-40); Prostate Specific Antigen < 0.014 ng/mL (0-4)
== END 2022-04-14 23:59 | disposition home or self-care (01) ==
PROVIDERS: PCP Internal Medicine; Visit Provider Internal Medicine Medical Oncology
DX: C61 Malignant neoplasm of prostate (principal)
CPT/HCPCS: 80053; 84153; 85025

== ENCOUNTER 2022-09-08 14:16 | Oncology outpatient (recurring) (ONCR) | payer MEDICARE, OTHER, SELFPAY ==
[2022-09-08 15:30] LABS: Basophils % 0.4 %; Eosinophils # 0.1 10^3/uL (0.0-0.8); Eosinophils % 1.7 %; Hemoglobin 14.1 g/dL (11.7-16.6); Lymphocytes # 3.2 10^3/uL (0.8-4.8); Lymphocytes % 44.7 %; Mean Corpuscular Hemoglobin 29.6 pg (28.0-34.0); Mean Corpuscular Volume 92.4 fl (80-94); Mean Platelet Volume 10.2 fL (7.4-10.4); Monocytes # 0.5 10^3/uL (0.2-0.9); Monocytes % 6.8 %; Neutrophils # 3.33 10^3/uL (1.8-7.7); Neutrophils % 45.8 %; Nucleated Red Blood Cells % 0 %; Platelet Count 251 10^3/cmm (130-400); Red Blood Count 4.76 10^6/uL (4.1-5.3); Red Cell Distribution Width 13.2 % (12.1-15.1); White Blood Count 7.3 10^3/uL (4.0-10.0)
[2022-09-08 16:05] LABS: Alanine Aminotransferase 11 U/L (0-41); Albumin Level 4.8 g/dL (3.5-5.2); Alkaline Phosphatase 67 U/L (40-130); Blood Urea Nitrogen 14 mg/dL (8-23); Calcium 10.4 mg/dL (8.5-10.5); Carbon Dioxide 28 mmol/L (22-29); Chloride 103 mmol/L (98-107); Globulin 2.9 g/dL (1.3-4.6); Glucose 95 mg/dL (65-115); Osmolality Calculated 296 mOsm/kg (285-295); Sodium 143 mmol/L (136-145); Total Bilirubin 0.3 mg/dL (0.15-1.2); Total Protein 7.7 g/dL (6.6-8.7)
[2022-09-08 16:08] LABS: Prostate Specific Antigen < 0.014 ng/mL (0-4)
[2022-09-08 16:10] LABS: Anion Gap 16.8 (5-19); Aspartate Amino Transferase 18 U/L (0-40); Potassium 4.8 mmol/L (3.5-5.1)
== END 2022-09-14 23:59 | disposition home or self-care (01) ==
PROVIDERS: PCP Internal Medicine; Visit Provider Internal Medicine Medical Oncology
DX: Z08 Encounter for follow-up examination after completed treatment for malignant neoplasm (principal); Z85.46 Personal history of malignant neoplasm of prostate; Z92.3 Personal history of irradiation
CPT/HCPCS: 36415; 80053; 84153; 85025; 99213; 99214

== ENCOUNTER 2022-12-10 11:48 | Oncology outpatient (recurring) (ONCR) | payer MEDICARE, OTHER, SELFPAY ==
[2022-12-10 12:37] LABS: Prostate Specific Antigen < 0.014 ng/mL (0-4)
== END 2022-12-15 23:59 | disposition home or self-care (01) ==
PROVIDERS: PCP Internal Medicine; Visit Provider Internal Medicine Medical Oncology
DX: C61 Malignant neoplasm of prostate
CPT/HCPCS: 36415; 84153

== ENCOUNTER 2023-01-22 13:52 | Emergency (ER) | payer MEDICARE, OTHER, SELFPAY ==
[2023-01-22 14:06] VITALS: BP 195/77; PULSE 76; RESP 18; TEMP 36.4; O2SAT 97
--- NOTE | 2023-01-22 14:49 | W.ED.NAVMDI ---
HPI - Nausea/Vomiting/Diarrhea General: Chief complaint: Nausea/Vomiting/Diarrhea Stated complaint: n/v Time Seen by Provider: 01/22/23 14:48 History of Present Illness: Patient complains of nausea vomiting diarrhea and up with abdominal pain started approximately 5 days ago was constant however did get better yesterday I thought he was over at the neck and back today with a vengeance. Patient does have prostate cancer and is undergoing treatment MD elicited complaint: nausea, vomiting, diarrhea and abdominal pain Pertinent past history: hernia (Hernia surgery approximately 6 months ago) Onset (ago): day(s) (5) Description of diarrhea: watery Associated nausea: Yes Associated abdominal pain: Yes Location of pain: Diffuse Pain consistency: constant Severity: moderate Quality: cramping, aching and constant Exacerbating factors: none Associated symtoms: Reports nausea; Denies anxiety, change in vision, chest pain, dysuria, headache(s) or palpitations Review of Systems General: Reports: 10 or more systems reviewed and unremarkable except in HPI and below Const: Reports: change in appetite; Denies: fever(s), chills or body aches Eyes: Denies: change in vision ENMT: Denies: throat pain or hoarseness Card: Denies: chest pain, palpitations, irregular heart rhythm or edema Resp: Denies: dyspnea, productive cough, non-productive cough or wheezing GI: Reports: abdominal pain, nausea and vomiting; Denies: hematemesis or coffee ground emesis : Denies: flank pain, difficulty urinating, dysuria, urinary frequency or urinary urgency Musc: Denies: neck pain, back pain, extremity pain or extremity swelling Skin/Breast: Denies: rash, pruritus, erythema or photosensitivity Neuro: Denies: headache(s), numbness in extremities or weakness in extremities Psych: Denies: anxiety, depression, mood swings or panic attacks Endo: Denies: polyuria, polydipsia, tired all the time or cold intolerance [place]/Lymph: Denies: easy bruising, easy bleeding, petechiae or purpura All/Imm: Denies: urticaria, throat swelling, tongue swelling or facial swelling PFSH ED PFSH: Medical History Degenerative arthritis Degenerative joint disease of spine Prostate cancer Surgical History H/O bilateral cataract extraction History of hernia repair [facility] - 2021 History of hernia repair Ventral hernia repair in 2018 and repair of recurrent incisional hernia with Ventrio mesh in 2019 History of prostatectomy (06/20/18) Robotic assisted radical prostatectomy Family History Other Absolute glaucoma Arthritis Hypertension Social History Smoking and tobacco status: former smoker (Smoked off and on 2 to 3 years) Alcohol intake: current Alcohol intake frequency: holidays/special occasions only Alcohol type: beer Household members: spouse and children Physical Exam Const: COMMON NORMALS: no acute distress, average body habitus, patient oriented x3, no limitations, healthy appearing, alert and well nourished HENMT: COMMON NORMALS: normocephalic, atraumatic, hearing grossly normal bilaterally, external ears normal and moist oral mucous membranes HEAD & SCALP: normocephalic and atraumatic EXTERNAL EAR: Yes external ears normal Eye: COMMON NORMALS: Equal, round and reactive pupils present, EOMs intact bilaterally and conjunctivae normal CONJUNCTIVA: Yes conjunctivae normal PUPIL: Yes Equal, round and reactive pupils present Neck/C-Spine: COMMON NORMALS: full ROM, no lymphadenopathy, supple, no meningeal signs, no JVD and Thyroid normal THYROID: Thyroid normal Lymph: LYMPHATIC: no lymphadenopathy noted and no lymphedema noted Chest: COMMONS NORMALS: normal inspection of the chest and normal palpation of entire chest wall Resp: COMMON NORMALS: normal respiratory effort, No retractions, No use of accessory muscles and clear to auscultation bilaterally AUSCULTATION: clear to auscultation bilaterally Cardio: COMMON NORMALS: no JVD, regular rate, regular rhythm, S1 normal heart sound present, S2 normal heart sound present and No gallops present (Cardio) RATE: regular rate RHYTHM: regular rhythm HEART SOUNDS: S1 normal heart sound present and S2 normal heart sound present GI: COMMON NORMALS: Normal to inspection, nondistended, normoactive bowel sounds present and Soft to palpation PALPATION: Yes Soft to palpation, Yes Tenderness to palpation present (GI) (Generalized), No Hepatosplenomegaly present, No Splenomegaly present, No Palpable mass present, No Ascites present and No Rebound tenderness present : COMMON NORMALS: Yes no CVA tenderness BLADDER/KIDNEY EXAM: Yes no CVA tenderness Back/Pelvis: COMMON NORMALS: no CVA tenderness and thoracic and lumbar spine normal to inspection Extremity: COMMON NORMALS: normal to inspection and full ROM Neuro: COMMON NORMALS: patient oriented x3, CN's II-XII intact bilaterally, moves all extremities, no focal motor deficits and no sensory deficits noted SENSORIUM/ORIENTATION: Yes alert MENINGEAL SIGNS: Yes no meningeal signs Psych: COMMON NORMALS: mental status grossly normal, Normal thought process present, cooperative, normal affect and speech normal SPEECH: Yes normal speech THOUGHT PROCESS: Normal thought process present Skin: COMMON NORMALS: no rashes or lesions noted, no wounds, turgor normal, no jaundice, no petechiae and no mottling GENERAL SKIN EXAM: no rashes or lesions noted and turgor normal Course Vital Signs: Vital signs: Vital Signs Temperature 97.6 F 01/22/23 14:06 Pulse Rate 76 01/22/23 14:06 Respiratory Rate 18 01/22/23 14:06 Blood Pressure 180/69 01/22/23 16:11 Pulse Oximetry 93 01/22/23 16:11 Oxygen Delivery Me thod 01/22/23 16:11 MDM - Nausea/Vomiting/Diarrhea Medical Decision Making Diarrhea abdominalPatient presents to the ER with proximately 4 days of pain, upon history and physical exam review of labs imaging included a CT scan of the abdomen pelvis with contrast as well as pain medicine and nausea medicine patient is feeling much better patient has had no emesis in the ER. Patient says he feels good enough to go home. Will discharge patient with home antiemetics. Differential Diagnosis Likely food poisoning, gastroenteritis and dehydration Medical Records I reviewed the patient's medical records. Lab Data I reviewed the patient's lab results. 01/22/23 15:10 01/22/23 15:10 Radiology Impressions Abdomen/Pelvis CT 01/22/23 16:08 IMPRESSION: 1. Prominent fluid in the stomach with mild wall thickening may reflect a gastritis in the appropriate clinical setting. 2. Emphysematous changes. 3. Bibasilar atelectasis versus infiltrate. 4. Hepatic steatosis. 5. Cholelithiasis. 6. Right hepatic lobe cyst. 7. Bilateral renal cysts, negative for follow-up advised. 8. Diverticulosis without diverticulitis. COMMENTS: Consistent with the [employer]'s Incidental Findings Committee white paper (J Am Kaylyn Radiol 2018): Any incidental renal lesion less than 1 cm or classified as too small to characterize, or any incidental cystic renal lesion characterized as simple-appearing, is likely benign. No follow-up imaging is recommended for these lesions per consensus recommendations based on imaging criteria. Laboratory Results WBC 9.5 10^3/uL (4.0-10.0) 01/22/23 15:10 RBC 5.31 10^6/uL (4.1-5.3) H 01/22/23 15:10 Hgb 15.3 g/dL (11.7-16.6) 01/22/23 15:10 Hct 47.8 % (42.0-52.0) 01/22/23 15:10 MCV 90.0 fl (80-94) 01/22/23 15:10 MCH 28.8 pg (28.0-34.0) 01/22/23 15:10 MCHC 32.0 g/dL (30.0-36.0) 01/22/23 15:10 RDW 13.6 % (12.1-15.1) 01/22/23 15:10 Plt Count 273 10^3/cmm (130-400) 01/22/23 15:10 MPV 10.1 fL (7.4-10.4) 01/22/23 15:10 Neut % (Auto) 72.7 % 01/22/23 15:10 Lymph % (Auto) 19.8 % 01/22/23 15:10 [place] % (Auto) 5.6 % 01/22/23 15:10 Eos % (Auto) 1.1 % 01/22/23 15:10 Baso % (Auto) 0.3 % 01/22/23 15:10 Neut # (Auto) 6.92 10^3/uL (1.8-7.7) 01/22/23 15:10 Lymph # (Auto) 1.9 10^3/uL (0.8-4.8) 01/22/23 15:10 [place] # (Auto) 0.5 10^3/uL (0.2-0.9) 01/22/23 15:10 Eos # (Auto) 0.1 10^3/uL (0.0-0.8) 01/22/23 15:10 Baso # (Auto) 0.0 10^3/uL (0.0-0.1) 01/22/23 15:10 Nucleated RBC % (auto) 0 % 01/22/23 15:10 Nucleated RBCs # 0.0 /100WBC 01/22/23 15:10 Sodium 140 mmol/L (136-145) 01/22/23 15:10 Potassium 4.2 mmol/L (3.5-5.1) 01/22/23 15:10 Chloride 101 mmol/L (98-107) 01/22/23 15:10 Carbon Dioxide 29 mmol/L (22-29) 01/22/23 15:10 Anion Gap 14.2 (5-19) 01/22/23 15:10 BUN 19 mg/dL (8-23) 01/22/23 15:10 Creatinine 1.0 mg/dL (0.7-1.2) 01/22/23 15:10 GFR Calculation Not Reportable 01/22/23 15:10 Glucose 134 mg/dL (65-115) H 01/22/23 15:10 Calculated Osmolality 294 mOsm/kg (285-295) 01/22/23 15:10 Calcium 9.6 mg/dL (8.5-10.5) 01/22/23 15:10 Magnesium 2.2 mg/dL (1.7-2.3) 01/22/23 15:10 Total Bilirubin 0.5 mg/dL (0.15-1.2) 01/22/23 15:10 AST 19 U/L (0-40) 01/22/23 15:10 ALT 7 U/L (0-41) 01/22/23 15:10 Alkaline Phosphatase 57 U/L (40-130) 01/22/23 15:10 Total Protein 7.1 g/dL (6.6-8.7) 01/22/23 15:10 Albumin 4.2 g/dL (3.5-5.2) 01/22/23 15:10 Globulin 2.9 g/dL (1.3-4.6) 01/22/23 15:10 Amylase 66 U/L (28-100) 01/22/23 15:10 Lipase 19 U/L (13-60) 01/22/23 15:10 Urine Color Yellow (Yellow) 01/22/23 17:10 Urine Appearance Clear (CLEAR) 01/22/23 17:10 Urine pH 8 (5-7) H 01/22/23 17:10 Ur Specific [place] 1.005 (1.005-1.030) 01/22/23 17:10 Urine Protein Neg (Negative) 01/22/23 17:10 Urine Glucose (UA) Norm (Normal) 01/22/23 17:10 Urine Ketones 1+ (Negative) H 01/22/23 17:10 Urine Blood Neg (Negative) 01/22/23 17:10 Urine Nitrate Negative (Negative) 01/22/23 17:10 Urine Bilirubin Neg (Negative) 01/22/23 17:10 Prot Sulfosalicylic Acd Negative (Negative) 01/22/23 17:10 Urine Urobilinogen Norm mg/dL (Negative) 01/22/23 17:10 Ur Leukocyte Esterase Negative (Negative) 01/22/23 17:10 Discharge Plan Discharge Patient Disposition: Home Clinical Impression: Gastroenteritis, Nonspecific abdominal pain Condition: Stable Prescriptions: New promethazine 25 mg tablet 25 mg PO TID PRN (Reason: nausea and vomiting) Qty: 10 0RF No Action ascorbic acid (vitamin C) 1,000 mg tablet 1 g PO DAILY PRN cholecalciferol (vitamin D3) 1 tab PO PRN turmeric See Rx Instructions PO .COMPLEX PRN Rx Instructions: 1 cap daily orally ; PRN; zinc acetate 50 mg (zinc) capsule 50 mg PO DAILY PRN Rx Instructions: swallow whole; do not chew/break/dissolve/open celecoxib [Celebrex] 200 mg capsule 200 mg PO DAILY Qty: 180 2RF Discharge Orders: Discharge ED (Routine); Ordered 01/22/23 Ordered By: Yan Sales Referrals: Dre Harding MD [Primary Care Provider] - 1 week Discharge Diet: Advance as tolerated Discharge Activity: Resume usual activity Patient Instructions: Acute Nausea and Vomiting (DC), Abdominal Pain (ED) Coding Level of Care Code ED Program Support Specialist for Filippog Jessica
[2023-01-22 15:16] LABS: Basophils % 0.3 %; Eosinophils # 0.1 10^3/uL (0.0-0.8); Eosinophils % 1.1 %; Hematocrit 47.8 % (42.0-52.0); Hemoglobin 15.3 g/dL (11.7-16.6); Lymphocytes # 1.9 10^3/uL (0.8-4.8); Lymphocytes % 19.8 %; Mean Corpuscular Hemoglobin 28.8 pg (28.0-34.0); Mean Platelet Volume 10.1 fL (7.4-10.4); Monocytes # 0.5 10^3/uL (0.2-0.9); Monocytes % 5.6 %; Neutrophils # 6.92 10^3/uL (1.8-7.7); Neutrophils % 72.7 %; Nucleated Red Blood Cells % 0 %; Platelet Count 273 10^3/cmm (130-400); Red Blood Count 5.31 10^6/uL (4.1-5.3); Red Cell Distribution Width 13.6 % (12.1-15.1); White Blood Count 9.5 10^3/uL (4.0-10.0)
[2023-01-22] MEDS: sodium chloride 0.9% 1,000 ML 999 ML IV (15:26)
[2023-01-22] MEDS: ondansetron 2 mg/ML SDV 2 mL 4 MG IVP (15:26)
[2023-01-22 15:27] VITALS: BP 196/81; O2SAT 92
[2023-01-22 15:52] LABS: Alanine Aminotransferase 7 U/L (0-41); Albumin Level 4.2 g/dL (3.5-5.2); Alkaline Phosphatase 57 U/L (40-130); Amylase 66 U/L (28-100); Anion Gap 14.2 (5-19); Aspartate Amino Transferase 19 U/L (0-40); Blood Urea Nitrogen 19 mg/dL (8-23); Calcium 9.6 mg/dL (8.5-10.5); Carbon Dioxide 29 mmol/L (22-29); Chloride 101 mmol/L (98-107); Globulin 2.9 g/dL (1.3-4.6); Glucose 134 mg/dL (65-115); Lipase 19 U/L (13-60); Magnesium 2.2 mg/dL (1.7-2.3); Osmolality Calculated 294 mOsm/kg (285-295); Potassium 4.2 mmol/L (3.5-5.1); Sodium 140 mmol/L (136-145); Total Bilirubin 0.5 mg/dL (0.15-1.2); Total Protein 7.1 g/dL (6.6-8.7)
[2023-01-22 15:59] VITALS: BP 168/76
--- NOTE | 2023-01-22 16:08 | CTR_ITS ---
PROCEDURE INFORMATION: Exam: CT Abdomen And Pelvis With Contrast Exam date and time: 01/22/2023 4:19 PM Age: 72 years old Clinical indication: Nausea and vomiting and other: Diarrhea; Prior surgery; Surgery type: Hiatal hernia; Prostatectomy for CA; Additional info: N/v/d abd pain, HX of prostate cancer TECHNIQUE: Imaging protocol: Computed tomography of the abdomen and pelvis with contrast. Radiation optimization: All CT scans at this facility use at least one of these dose optimization techniques: automated exposure control; mA and/or kV adjustment per patient size (includes targeted exams where dose is matched to clinical indication); or iterative reconstruction. Contrast material: OMNI 350; Contrast volume: 100 ml; Contrast route: INTRAVENOUS (IV); REPORTING DATA: Count of CT and Cardiac NM exams in prior 12 months: This patient has received 0 known CTs and 0 known cardiac nuclear medicine studies in the 12 months prior to the current study. COMPARISON: MR pelvis wo con* [id number] 05/17/2018 12:44 PM RADIATION DOSE METRICS: Total DLP (mGy-cm): 864.23 FINDINGS: Lungs: Emphysematous changes. Bibasilar atelectasis versus infiltrate. Liver: Hepatic steatosis. Right hepatic lobe cyst. Gallbladder and bile ducts: Cholelithiasis. Pancreas: Normal. No ductal dilation. Spleen: Normal. No splenomegaly. Adrenal glands: Normal. No mass. Kidneys and ureters: Bilateral renal cysts, negative for follow-up advised. Stomach and bowel: Diverticulosis without diverticulitis. Prominent fluid in the stomach with mild wall thickening may reflect a gastritis in the appropriate clinical setting. Appendix: No evidence of appendicitis. Intraperitoneal space: Unremarkable. No free air. No significant fluid collection. Vasculature: Unremarkable. No abdominal aortic aneurysm. Lymph nodes: Unremarkable. No enlarged lymph nodes. Urinary bladder: Unremarkable as visualized. Reproductive: Unremarkable as visualized. Bones/joints: Unremarkable. No acute fracture. Soft tissues: Unremarkable. CT/CT abdomen pelvis w con* [id number] IMPRESSION: 1. Prominent fluid in the stomach with mild wall thickening may reflect a gastritis in the appropriate clinical setting. 2. Emphysematous changes. 3. Bibasilar atelectasis versus infiltrate. 4. Hepatic steatosis. 5. Cholelithiasis. 6. Right hepatic lobe cyst. 7. Bilateral renal cysts, negative for follow-up advised. 8. Diverticulosis without diverticulitis. COMMENTS: Consistent with the [employer]'s Incidental Findings Committee white paper (J Am Kaylyn Radiol 2018): Any incidental renal lesion less than 1 cm or classified as too small to characterize, or any incidental cystic renal lesion characterized as simple-appearing, is likely benign. No follow-up imaging is recommended for these lesions per consensus recommendations based on imaging criteria.
[2023-01-22 16:11] VITALS: BP 180/69; O2SAT 93
[2023-01-22] MEDS: iohexol 350 mg/mL 500 mL Btl (per mL) IV (16:25)
[2023-01-22 17:13] LABS: Add Urine Microscopic? NO; Charge for UA Resulting for Rev
[2023-01-22] MEDS: ketorolac 30 mg/mL INJ IVP (17:14)
[2023-01-22 17:20] LABS: Bilirubin Urine Neg (Negative); Blood Urine Neg (Negative); Glucose Urine UA Norm (Normal); Ketones Urine 1+ (Negative); Leukocyte Esterase Urine Negative (Negative); Nitrate Urine Negative (Negative); Protein Urine Neg (Negative); Specific Gravity, Urine 1.005 (1.005-1.030); Sulfosalicylic Acid Urine Negative (Negative); Urine Appearance Clear (CLEAR); Urine Color Yellow (Yellow); Urobilinogen Urine Norm (Negative); pH Urine 8 (5-7)
[2023-01-22] MEDS: fentaNYL 50 mcg/mL INJ 2mL IVP (17:49)
[2023-01-22] MEDS: promethazine 25 mg Tablet PO (17:50)
== END 2023-01-22 18:19 | disposition home or self-care (01) ==
PROVIDERS: Physician Assistant; Emergency Provider Emergency Medicine; PCP Internal Medicine Medical Oncology
DX: K52.9 Noninfective gastroenteritis and colitis, unspecified (principal)
CPT/HCPCS: 74177; 80053; 81003; 82150; 83690; 83735; 85025; 96374; 96375; 99285; J1885; J2405; J3010; J7030; Q0169; Q9967

== ENCOUNTER 2023-07-27 13:54 | Oncology outpatient (recurring) (ONCR) | payer MEDICARE, OTHER, SELFPAY ==
[2023-07-27 13:56] VITALS: BP 144/82; PULSE 81; RESP 18; TEMP 36.6; O2SAT 97
[2023-07-27 14:09] LABS: Basophils % 0.4 %; Eosinophils # 0.2 10^3/uL (0.0-0.8); Eosinophils % 1.5 %; Hematocrit 45.2 % (37-53); Lymphocytes # 3.4 10^3/uL (0.8-4.8); Lymphocytes % 34.9 %; Mean Corpuscular HGB Conc 32.3 g/dL (30-55); Mean Corpuscular Hemoglobin 29.9 pg (27-33); Mean Corpuscular Volume 92.6 fl (82-101); Mean Platelet Volume 9.7 fL (7.4-10.4); Monocytes # 0.6 10^3/uL (0.2-0.9); Monocytes % 6.2 %; Neutrophils # 5.46 10^3/uL (1.8-7.7); Neutrophils % 56.3 %; Nucleated Red Blood Cells % 0 %; Platelet Count 246 10^3/cmm (157-399); Red Blood Count 4.88 10^6/uL (3.85-5.65); Red Cell Distribution Width 13.6 % (12.1-15.1); White Blood Count 9.71 10^3/uL (3.29-11.43)
[2023-07-27 14:45] LABS: Alanine Aminotransferase 9 U/L (0-41); Albumin Level 4.5 g/dL (3.5-5.2); Alkaline Phosphatase 51 U/L (40-130); Anion Gap 11.4 (5-19); Aspartate Amino Transferase 14 U/L (0-40); Blood Urea Nitrogen 18 mg/dL (8-23); Calcium 9.5 mg/dL (8.5-10.5); Carbon Dioxide 28 mmol/L (22-29); Chloride 106 mmol/L (98-107); Globulin 2.5 g/dL (1.3-4.6); Glucose 100 mg/dL (65-115); Osmolality Calculated 294 mOsm/kg (285-295); Potassium 4.4 mmol/L (3.5-5.1); Sodium 141 mmol/L (136-145); Total Bilirubin 0.5 mg/dL (0.15-1.2)
[2023-07-27 14:49] LABS: Prostate Specific Antigen < 0.014 ng/mL (0-4)
== END 2023-08-14 23:59 | disposition home or self-care (01) ==
PROVIDERS: PCP Internal Medicine Medical Oncology; Visit Provider Internal Medicine Medical Oncology
DX: C61 Malignant neoplasm of prostate (principal)
CPT/HCPCS: 36415; 80053; 84153; 85025; 99213

== ENCOUNTER → 2023-11-10 14:35 | Outpatient (BNVA) | payer MEDICARE, OTHER, SELFPAY | PROVIDERS: PCP Internal Medicine Medical Oncology; Visit Provider Family Medicine Adult Medicine | DX: R53.83 Other fatigue (principal); R73.09 Other abnormal glucose; C61 Malignant neoplasm of prostate | CPT/HCPCS: 83036; 84443 ==

== ENCOUNTER 2024-01-25 13:09 | Oncology outpatient (recurring) (ONCR) | payer MEDICARE, OTHER, SELFPAY ==
[2024-01-14 09:42] LABS: Basophils % 0.3 %; Eosinophils # 0.1 10^3/uL (0.0-0.8); Eosinophils % 1.6 %; Lymphocytes # 3.3 10^3/uL (0.8-4.8); Lymphocytes % 44.1 %; Mean Corpuscular HGB Conc 31.5 g/dL (30-55); Mean Corpuscular Volume 95.2 fl (82-101); Mean Platelet Volume 10.2 fL (7.4-10.4); Monocytes # 0.6 10^3/uL (0.2-0.9); Monocytes % 7.7 %; Neutrophils # 3.44 10^3/uL (1.8-7.7); Neutrophils % 45.8 %; Nucleated Red Blood Cells % 0 %; Platelet Count 268 10^3/cmm (157-399); Red Blood Count 4.83 10^6/uL (3.85-5.65); Red Cell Distribution Width 13.5 % (12.1-15.1); White Blood Count 7.51 10^3/uL (3.29-11.43)
[2024-01-14 10:19] LABS: Alanine Aminotransferase 12 U/L (0-41); Albumin Level 4.4 g/dL (3.5-5.2); Alkaline Phosphatase 55 U/L (40-130); Anion Gap 11.6 (5-19); Aspartate Amino Transferase 15 U/L (0-40); Blood Urea Nitrogen 23 mg/dL (8-23); Calcium 9.6 mg/dL (8.5-10.5); Carbon Dioxide 29 mmol/L (22-29); Chloride 106 mmol/L (98-107); Globulin 2.6 g/dL (1.3-4.6); Glucose 90 mg/dL (65-115); Osmolality Calculated 297 mOsm/kg (285-295); Potassium 4.6 mmol/L (3.5-5.1); Prostate Specific Antigen 0.036 ng/mL (0-4); Sodium 142 mmol/L (136-145); Total Bilirubin 0.4 mg/dL (0.15-1.2)
== END 2024-02-13 23:59 | disposition home or self-care (01) ==
PROVIDERS: PCP Internal Medicine Medical Oncology; Visit Provider Internal Medicine Medical Oncology
DX: Z08 Encounter for follow-up examination after completed treatment for malignant neoplasm (principal); Z85.46 Personal history of malignant neoplasm of prostate; Z92.3 Personal history of irradiation
CPT/HCPCS: 36415; 80053; 84153; 85025; 99213

== ENCOUNTER 2024-05-29 13:57 | Oncology outpatient (recurring) (ONCR) | payer MEDICARE, OTHER, SELFPAY ==
[2024-05-29 14:52] LABS: Basophils % 0.5 %; Eosinophils # 0.2 10^3/uL (0.0-0.8); Eosinophils % 2.2 %; Hematocrit 42.2 % (37-53); Lymphocytes # 2.3 10^3/uL (0.8-4.8); Lymphocytes % 26.9 %; Mean Corpuscular Hemoglobin 29.8 pg (27-33); Mean Corpuscular Volume 93.2 fl (82-101); Mean Platelet Volume 10.1 fL (7.4-10.4); Monocytes # 0.6 10^3/uL (0.2-0.9); Monocytes % 6.5 %; Neutrophils # 5.38 10^3/uL (1.8-7.7); Neutrophils % 63.3 %; Nucleated Red Blood Cells % 0 %; Platelet Count 235 10^3/cmm (157-399); Red Blood Count 4.53 10^6/uL (3.85-5.65); Red Cell Distribution Width 13.6 % (12.1-15.1)
[2024-05-29 15:23] LABS: Alanine Aminotransferase 11 U/L (0-41); Albumin Level 4.2 g/dL (3.5-5.2); Alkaline Phosphatase 58 U/L (40-130); Anion Gap 15.9 (5-19); Aspartate Amino Transferase 13 U/L (0-40); Blood Urea Nitrogen 16 mg/dL (8-23); Calcium 9.5 mg/dL (8.5-10.5); Carbon Dioxide 26 mmol/L (22-29); Chloride 103 mmol/L (98-107); Globulin 2.6 g/dL (1.3-4.6); Glucose 133 mg/dL (65-115); Osmolality Calculated 295 mOsm/kg (285-295); Potassium 3.9 mmol/L (3.5-5.1); Sodium 141 mmol/L (136-145); Testosterone Total 429.3 ng/dL (193-740); Total Bilirubin 0.5 mg/dL (0.15-1.2); Total Protein 6.8 g/dL (6.6-8.7)
[2024-05-29 16:26] LABS: Prostate Specific Antigen 0.042 ng/mL (0-4); Vitamin B12 270 pg/mL (232-1245)
[2024-05-30 15:45] LABS: Estmated Average Glucose 111; Hemoglobin A1C 5.5 % (4.0-6.0)
== END 2024-06-14 23:59 | disposition home or self-care (01) ==
PROVIDERS: PCP Internal Medicine Medical Oncology; Visit Provider Internal Medicine Medical Oncology
DX: C61 Malignant neoplasm of prostate; F32.A Depression, unspecified; R53.83 Other fatigue
CPT/HCPCS: 36415; 80053; 82607; 83036; 84153; 84403; 84443; 85025

== ENCOUNTER 2024-08-28 11:06 | Oncology outpatient (recurring) (ONCR) | payer MEDICARE, OTHER, SELFPAY ==
[2024-08-28 11:28] LABS: Basophils % 0.4 %; Eosinophils # 0.2 10^3/uL (0.0-0.8); Eosinophils % 2.5 %; Hematocrit 48.1 % (37-53); Lymphocytes # 3.5 10^3/uL (0.8-4.8); Lymphocytes % 44.3 %; Mean Corpuscular HGB Conc 31.2 g/dL (30-55); Mean Corpuscular Hemoglobin 29.4 pg (27-33); Mean Corpuscular Volume 94.3 fl (82-101); Mean Platelet Volume 10.2 fL (7.4-10.4); Monocytes # 0.6 10^3/uL (0.2-0.9); Monocytes % 7.5 %; Neutrophils # 3.52 10^3/uL (1.8-7.7); Neutrophils % 44.9 %; Nucleated Red Blood Cells % 0 %; Platelet Count 261 10^3/cmm (157-399); Red Cell Distribution Width 13.2 % (12.1-15.1); White Blood Count 7.85 10^3/uL (3.29-11.43)
[2024-08-28 11:51] LABS: Alanine Aminotransferase 11 U/L (0-41); Albumin Level 4.5 g/dL (3.5-5.2); Alkaline Phosphatase 55 U/L (40-130); Anion Gap 11.2 (5-19); Aspartate Amino Transferase 15 U/L (0-40); Blood Urea Nitrogen 14 mg/dL (8-23); Calcium 9.3 mg/dL (8.5-10.5); Carbon Dioxide 29 mmol/L (22-29); Chloride 105 mmol/L (98-107); Creatinine Clr Calc Pharmacy 76.7397; Globulin 2.3 g/dL (1.3-4.6); Glucose 99 mg/dL (65-115); Osmolality Calculated 293 mOsm/kg (285-295); Potassium 4.2 mmol/L (3.5-5.1); Sodium 141 mmol/L (136-145); Testosterone Total 639.2 ng/dL (193-740); Thyroid Stimulating Hormone 2.63 uIU/mL (0.27-4.20); Total Bilirubin 0.6 mg/dL (0.15-1.2); Total Protein 6.8 g/dL (6.6-8.7)
[2024-08-28 13:31] LABS: Vitamin B12 365 pg/mL (232-1245)
== END 2024-09-14 23:59 | disposition home or self-care (01) ==
PROVIDERS: PCP Internal Medicine Medical Oncology; Visit Provider Internal Medicine Medical Oncology
DX: C61 Malignant neoplasm of prostate (principal); F32.A Depression, unspecified; R53.83 Other fatigue; Z53.9 Procedure and treatment not carried out, unspecified reason; Z79.899 Other long term (current) drug therapy
CPT/HCPCS: 36415; 80053; 82607; 84153; 84403; 84443; 85025; 99214

== ENCOUNTER 2024-09-21 12:00 | Oncology outpatient (recurring) (ONCR) | payer MEDICARE, OTHER, SELFPAY ==
[2024-09-21 12:33] LABS: Basophils % 0.5 %; Eosinophils # 0.2 10^3/uL (0.0-0.8); Hematocrit 46.5 % (37-53); Lymphocytes # 3.4 10^3/uL (0.8-4.8); Lymphocytes % 43.8 %; Mean Corpuscular HGB Conc 32.7 g/dL (30-55); Mean Corpuscular Hemoglobin 30.3 pg (27-33); Mean Corpuscular Volume 92.6 fl (82-101); Monocytes # 0.6 10^3/uL (0.2-0.9); Monocytes % 7.8 %; Neutrophils # 3.57 10^3/uL (1.8-7.7); Neutrophils % 45.5 %; Nucleated Red Blood Cells % 0 %; Platelet Count 253 10^3/cmm (157-399); Red Blood Count 5.02 10^6/uL (3.85-5.65); Red Cell Distribution Width 13.5 % (12.1-15.1); White Blood Count 7.85 10^3/uL (3.29-11.43)
[2024-09-21 13:06] LABS: Alanine Aminotransferase 10 U/L (0-41); Albumin Level 4.6 g/dL (3.5-5.2); Alkaline Phosphatase 53 U/L (40-130); Anion Gap 11.2 (5-19); Aspartate Amino Transferase 18 U/L (0-40); Blood Urea Nitrogen 16 mg/dL (8-23); Calcium 9.4 mg/dL (8.5-10.5); Carbon Dioxide 30 mmol/L (22-29); Chloride 104 mmol/L (98-107); Creatinine Clr Calc Pharmacy 69.0073; Globulin 1.9 g/dL (1.3-4.6); Glucose 107 mg/dL (65-115); Osmolality Calculated 294 mOsm/kg (285-295); Potassium 4.2 mmol/L (3.5-5.1); Prostate Specific Antigen 0.122 ng/mL (0-4); Sodium 141 mmol/L (136-145); Total Bilirubin 0.5 mg/dL (0.15-1.2); Total Protein 6.5 g/dL (6.6-8.7)
== END 2024-10-14 23:59 | disposition home or self-care (01) ==
PROVIDERS: Internal Medicine; PCP Internal Medicine Medical Oncology; Visit Provider Internal Medicine Medical Oncology
DX: C61 Malignant neoplasm of prostate (principal); F32.A Depression, unspecified; R53.83 Other fatigue; Z79.899 Other long term (current) drug therapy
CPT/HCPCS: 36415; 80053; 84153; 85025; 99213

== ENCOUNTER 2024-12-21 09:01 | Oncology outpatient (recurring) (ONCR) | payer MEDICARE, OTHER, SELFPAY ==
[2024-12-21 09:49] LABS: Basophils % 0.4 %; Eosinophils # 0.1 10^3/uL (0.0-0.8); Eosinophils % 1.3 %; Hematocrit 47.3 % (37-53); Lymphocytes # 3.4 10^3/uL (0.8-4.8); Lymphocytes % 45.1 %; Mean Corpuscular HGB Conc 31.9 g/dL (30-55); Mean Corpuscular Hemoglobin 30.4 pg (27-33); Mean Corpuscular Volume 95.2 fl (82-101); Mean Platelet Volume 9.6 fL (7.4-10.4); Monocytes # 0.6 10^3/uL (0.2-0.9); Monocytes % 7.7 %; Neutrophils # 3.39 10^3/uL (1.8-7.7); Neutrophils % 45.2 %; Nucleated Red Blood Cells % 0 %; Platelet Count 257 10^3/cmm (157-399); Red Blood Count 4.97 10^6/uL (3.85-5.65); Red Cell Distribution Width 13.6 % (12.1-15.1)
[2024-12-21 10:32] LABS: Alanine Aminotransferase 14 U/L (0-41); Albumin Level 4.7 g/dL (3.5-5.2); Alkaline Phosphatase 53 U/L (40-130); Aspartate Amino Transferase 18 U/L (0-40); Blood Urea Nitrogen 18 mg/dL (8-23); Calcium 10.3 mg/dL (8.5-10.5); Carbon Dioxide 29 mmol/L (22-29); Chloride 104 mmol/L (98-107); Creatinine Clr Calc Pharmacy 75.9081; Globulin 2.9 g/dL (1.3-4.6); Glucose 104 mg/dL (65-115); Osmolality Calculated 294 mOsm/kg (285-295); Prostate Specific Antigen 0.156 ng/mL (0-4); Sodium 141 mmol/L (136-145); Total Bilirubin 0.5 mg/dL (0.15-1.2); Total Protein 7.6 g/dL (6.6-8.7)
[2024-12-21 10:41] LABS: Testosterone Total 516.7 ng/dL (193-740)
[2024-12-21 11:44] LABS: Anion Gap 12.4 (5-19); Lactate Dehydrogenase 182 U/L (135-225); Potassium 4.4 mmol/L (3.5-5.1)
== END 2025-01-12 23:59 | disposition home or self-care (01) ==
PROVIDERS: Internal Medicine; PCP Internal Medicine Medical Oncology; Visit Provider Internal Medicine
DX: Z08 Encounter for follow-up examination after completed treatment for malignant neoplasm (principal); Z85.46 Personal history of malignant neoplasm of prostate; R05.8 Other specified cough; Z90.79 Acquired absence of other genital organ(s); Z92.3 Personal history of irradiation; Z92.21 Personal history of antineoplastic chemotherapy
CPT/HCPCS: 36415; 80053; 83615; 84153; 84403; 85025; 99214

== ENCOUNTER 2025-05-30 11:09 | Oncology outpatient (recurring) (ONCR) | payer MEDICARE, OTHER, SELFPAY ==
[2025-05-30 11:33] LABS: Hematocrit 45.5 % (37-53); Hemoglobin 14.80 g/dL (11.27-16.99); Mean Corpuscular HGB Conc 32.5 g/dL (30-55); Mean Corpuscular Hemoglobin 30.1 pg (27-33); Mean Corpuscular Volume 92.5 fl (82-101); Nucleated Red Blood Cells % 0 %; Platelet Count 238 10^3/cmm (157-399); Red Blood Count 4.92 10^6/uL (3.85-5.65); White Blood Count 8.41 10^3/uL (3.29-11.43)
[2025-05-30 12:04] LABS: Alanine Aminotransferase 11 U/L (0-41); Albumin Level 4.3 g/dL (3.5-5.2); Alkaline Phosphatase 62 U/L (40-130); Anion Gap 14.7 (5-19); Aspartate Amino Transferase 15 U/L (0-40); Blood Urea Nitrogen 16 mg/dL (8-23); Calcium 9.7 mg/dL (8.5-10.5); Carbon Dioxide 27 mmol/L (22-29); Chloride 104 mmol/L (98-107); Creatinine Clr Calc Pharmacy 75.5769; Globulin 3.1 g/dL (1.3-4.6); Glucose 101 mg/dL (65-115); Osmolality Calculated 293 mOsm/kg (285-295); Potassium 4.7 mmol/L (3.5-5.1); Prostate Specific Antigen 0.228 ng/mL (0-4); Sodium 141 mmol/L (136-145); Total Protein 7.4 g/dL (6.6-8.7)
== END 2025-06-14 23:59 | disposition home or self-care (01) ==
PROVIDERS: PCP Internal Medicine; Visit Provider Internal Medicine
DX: C61 Malignant neoplasm of prostate (principal); R03.0 Elevated blood-pressure reading, without diagnosis of hypertension; Z87.891 Personal history of nicotine dependence
CPT/HCPCS: 36415; 80053; 83615; 84153; 84403; 85025; 99213

== ENCOUNTER 2025-08-30 09:49 | Oncology outpatient (recurring) (ONCR) | payer MEDICARE, OTHER, SELFPAY ==
[2025-08-30 10:38] LABS: Hematocrit 46.5 % (37-53); Hemoglobin 14.90 g/dL (11.27-16.99); Mean Corpuscular HGB Conc 32.0 g/dL (30-55); Mean Corpuscular Hemoglobin 29.4 pg (27-33); Mean Corpuscular Volume 91.7 fl (82-101); Nucleated Red Blood Cells % 0 %; Platelet Count 239 10^3/cmm (157-399); Red Blood Count 5.07 10^6/uL (3.85-5.65); White Blood Count 7.20 10^3/uL (3.29-11.43)
[2025-08-30 10:59] LABS: Alanine Aminotransferase 18 U/L (0-41); Albumin Level 4.4 g/dL (3.5-5.2); Alkaline Phosphatase 66 U/L (40-130); Anion Gap 16.5 (5-19); Aspartate Amino Transferase 21 U/L (0-40); Blood Urea Nitrogen 15 mg/dL (8-23); Calcium 10.2 mg/dL (8.5-10.5); Carbon Dioxide 26 mmol/L (22-29); Chloride 104 mmol/L (98-107); Creatinine Clr Calc Pharmacy 66.8170; Globulin 3.1 g/dL (1.3-4.6); Glucose 106 mg/dL (65-115); Osmolality Calculated 295 mOsm/kg (285-295); Potassium 4.5 mmol/L (3.5-5.1); Prostate Specific Antigen 0.253 ng/mL (0-4); Sodium 142 mmol/L (136-145); Total Protein 7.5 g/dL (6.6-8.7)
== END 2025-09-14 23:59 | disposition home or self-care (01) ==
PROVIDERS: Nurse Practitioner; PCP Internal Medicine; Visit Provider Internal Medicine
DX: C61 Malignant neoplasm of prostate (principal); L72.3 Sebaceous cyst; Z87.891 Personal history of nicotine dependence; Z92.3 Personal history of irradiation; Z92.21 Personal history of antineoplastic chemotherapy
CPT/HCPCS: 36415; 80053; 83615; 84153; 85025; 99213